=== PATIENT | female | born 1990 | race Caucasian/White ===

== ENCOUNTER 2020-06-05 21:51 | Emergency (ER) | payer SELFPAY ==
[2020-06-05 21:56] VITALS: BP 154/79; PULSE 105; RESP 20; TEMP 36.8; O2SAT 99; BMI 33.6
[2020-06-05 22:00] VITALS: BP 148/81; PULSE 107; RESP 16; O2SAT 97
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
--- NOTE | 2020-06-05 22:11 | XRR_ITS ---
PROCEDURE INFORMATION: Exam: XR Chest, 1 View Exam date and time: 06/05/2020 10:29 PM Age: 30 years old Clinical indication: Shortness of breath; Chest pain; Additional info: SOB and cp TECHNIQUE: Imaging protocol: XR of the chest Views: 1 view. COMPARISON: No relevant prior studies available. FINDINGS: Lungs: Unremarkable. No consolidation. Pleural space: Unremarkable. No pleural effusion. No pneumothorax. Heart/Mediastinum: Unremarkable. No cardiomegaly. Bones/joints: Unremarkable. XR/XR chest 1V portable [id number] IMPRESSION: No acute findings.
[2020-06-05 22:30] VITALS: BP 150/81; PULSE 101; RESP 18; O2SAT 98
[2020-06-05 22:36] LABS: Basophils # 0.1 10^3/uL (0.0-0.1); Basophils % 0.5 %; Eosinophils # 0.3 10^3/uL (0.0-0.8); Hematocrit 40.5 % (37.0-47.0); Hemoglobin 13.4 g/dL (11.5-15.3); Lymphocytes % 30.7 %; Mean Corpuscular HGB Conc 33.1 g/dL (30.0-36.0); Mean Corpuscular Hemoglobin 30.2 pg (28.0-34.0); Mean Corpuscular Volume 91.4 fL (81-99); Mean Platelet Volume 9.8 fL (7.4-10.4); Monocytes # 0.8 10^3/uL (0.2-0.9); Monocytes % 8.4 %; Neutrophils # 5.63 10^3/uL (1.8-7.7); Neutrophils % 57.3 %; Nucleated Red Blood Cells % 0 %; Platelet Count 290 10^3/cmm (130-400); Red Blood Count 4.43 10^6/uL (4.1-5.3); Red Cell Distribution Width 12.5 % (12.1-15.1); White Blood Count 9.8 10^3/uL (4.0-10.0)
[2020-06-05] MEDS: meclizine 25 mg tablet 50 MG PO (22:50)
[2020-06-05] MEDS: sodium chloride 0.9% 1,000 ML 999 ML IV (22:53)
[2020-06-05 22:55] LABS: D Dimer 0.41 ug/mIFEU (0-0.59)
[2020-06-05 22:58] LABS: Alanine Aminotransferase 9 U/L (0-33); Albumin Level 3.9 g/dL (3.5-5.2); Alkaline Phosphatase 76 IU/L (35-105); Aspartate Amino Transferase 12 U/L (0-32); Blood Urea Nitrogen 16 mg/dL (6-20); Carbon Dioxide 22 mmol/L (22-29); Chloride 110 mmol/L (98-107); Globulin 3.3 g/dL (1.3-4.6); Glucose 113 mg/dL (65-115); Osmolality Calculated 294 mOsm/kg (285-295); Sodium 141 mmol/L (136-145); Total Bilirubin 0.2 mg/dL (0.15-1.2); Total Protein 7.2 g/dL (6.6-8.7)
[2020-06-05 23:00] VITALS: BP 148/77; PULSE 99; RESP 18; O2SAT 100
[2020-06-05 23:00] LABS: Troponin(5th) Baseline 6 ng/L (0-10)
[2020-06-05 23:08] LABS: HCG, Serum Qual Negative (Negative)
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
[2020-06-05 23:30] VITALS: BP 155/74; PULSE 98; RESP 16; O2SAT 99
[2020-06-06] VITALS: BP 149/77; PULSE 100; RESP 18; O2SAT 99
--- NOTE | 2020-06-06 00:11 | ECG_ITS ---
[facility] Test Date: 2020-06-05 Pat Name: Claribel Oconnor Department: Room: Gender: Female Cold [employer] Cook: : 1990 Requested By: Jung Fonseca Order Number: [id number] Polanco MD: Donte Klein M.D. Measurements Intervals [place] Rate: 87 P: 43 DE: 143 QRS: 28 QRSD: 107 T: 22 QT: 362 QTc: 437 Interpretive Statements SINUS RHYTHM INCOMPLETE RIGHT BUNDLE BRANCH BLOCK [90+ ms QRS DURATION, TERMINAL R IN V1/V2, 40+ ms S IN I/aVL/V4/V5/V6] No previous ECG available for comparison Electronically Signed On 06-06-2020 17:02:54 PRODUCTION SERVICE MANAGER by Donte Klein M.D. [id number] f
[2020-06-06 00:28] VITALS: BP 151/78; PULSE 101; RESP 16; O2SAT 98
== END 2020-06-06 00:30 | disposition home or self-care (01) ==
PROVIDERS: Emergency Provider Physician Assistant; PCP Nurse Practitioner Family
DX: S06.0X0A Concussion without loss of consciousness, initial encounter (principal); J40 Bronchitis, not specified as acute or chronic; M94.0 Chondrocostal junction syndrome [Tietze]; W22.8XXA Striking against or struck by other objects, initial encounter
CPT/HCPCS: 12345; 70450; 71045; 80053; 84484; 84703; 85025; 85378; 93005; 96360; 99283; J7030; J8597

== ENCOUNTER → 2020-06-15 08:12 | Outpatient (BNVA) | payer SELFPAY | PROVIDERS: PCP Nurse Practitioner Family; Visit Provider Nurse Practitioner Family | DX: R00.0 Tachycardia, unspecified (principal); Z79.899 Other long term (current) drug therapy | CPT/HCPCS: 80053; 81003; 83036; 83735; 84439; 84443; 84481 ==

== ENCOUNTER → 2020-07-04 10:15 | Outpatient (BNVA) | payer OTHER, SELFPAY | PROVIDERS: PCP Nurse Practitioner Family; Visit Provider Nurse Practitioner Family | DX: R53.83 Other fatigue (principal); D64.9 Anemia, unspecified; R31.9 Hematuria, unspecified; E55.9 Vitamin D deficiency, unspecified | CPT/HCPCS: 80053; 81003; 82306; 83550; 83921; 85025 ==

== ENCOUNTER → 2020-07-05 15:24 | Outpatient (BNVA) | payer OTHER, SELFPAY | PROVIDERS: PCP Nurse Practitioner Family; Visit Provider Nurse Practitioner Family | DX: R10.9 Unspecified abdominal pain (principal) | CPT/HCPCS: 74018; 80061; 82310; 83970 ==

== ENCOUNTER → 2020-07-12 11:19 | Outpatient (BNVA) | payer OTHER, SELFPAY | PROVIDERS: PCP Nurse Practitioner Family; Visit Provider Nurse Practitioner Family | DX: M16.0 Bilateral primary osteoarthritis of hip (principal); E55.9 Vitamin D deficiency, unspecified; E61.1 Iron deficiency | CPT/HCPCS: 73502 ==

== ENCOUNTER 2020-09-08 15:02 | Outpatient (CLI) | payer OTHER, SELFPAY ==
--- NOTE | 2020-09-08 15:00 | USCV_ITS ---
[place], [place] Age: 30 Gender: F : 1990 Exam Date: 09/08/2020 15:22 Ordering Phys: Donte Klein M.D ([email or web address]) Technologist: Adina Gómez Exam Location: [facility] Indication: TACHYCARDIA BP: / HR: 78 Rhythm: Sinus Technical Quality: Adequate MEASUREMENTS (Male / Female) Normal Values 2D ECHO LV Diastolic Diameter PLAX 4.4 cm 4.2 - 5.9 / 3.9 - 5.3 cm LV Systolic Diameter PLAX 2.6 cm LV Chamber Size 3.3 cm IVS Diastolic Thickness 1.2 cm 0.6 - 1.0 / 0.6 - 0.9 cm IVS Systolic Thickness 1.5 cm LVPW Diastolic Thickness 1.7 cm 0.6 - 1.0 / 0.6 - 0.9 cm LVPW Systolic Thickness 2.5 cm RV Chamber Size 2.2 cm LVOT Diameter 2.0 cm LV Ejection Fraction 2D Teich 72.1 % LV Ejection Fraction MOD 2C 60.4 % LV Ejection Fraction 2C AL 58.2 % LA Diameter 2.9 cm LA Width 3.1 cm LA Height 4.6 cm RA Width 2.2 cm RA Height 3.9 cm Aorta at Sinotubular Diameter 2.0 cm M-MODE LV Diastolic Diameter MM 4.5 cm 4.2 - 5.9 / 3.9 - 5.3 cm LV Systolic Diameter MM 2.5 cm LV Ejection Fraction MM Teich 75.5 % IVS Diastolic Thickness MM 1.2 cm 0.6 - 1.0 / 0.6 - 0.9 cm IVS Systolic Thickness MM 1.4 cm LVPW Diastolic Thickness MM 1.7 cm 0.6 - 1.0 / 0.6 - 0.9 cm LVPW Systolic Thickness MM 1.6 cm Aortic Annulus Diameter 2.6 cm LA Ao Ratio MM 1.3 MV E Point Septal Separation 0.8 cm DOPPLER AV Peak Velocity 175.0 cm/s LVOT Peak Velocity 161.0 cm/s AV Area Cont Eq vti 3.5 cm squared AV Area Cont Eq pk 2.9 cm squared MV Area PHT 7.1 cm squared Mitral E to A Ratio 1.4 MV E' Velocity 66.0 cm/s Mitral E to MV E' Ratio 7.3 Mitral E to LV E' Lateral Ratio 6.9 Mitral E to LV E' Septal Ratio 7.9 TR Peak Velocity 255.3 cm/s TR Peak Gradient 26.1 mmHg TV Peak E Velocity 70.0 cm/s Right Atrial Pressure 3.0 mmHg Pulmonary Artery Systolic Pressu 29.1 mmHg PV Peak Velocity 100.0 cm/s RV Acceleration Time 0.2 s RV Ejection Time 0.4 s RV AcT/ET 0.5 FINDINGS Left Ventricle Normal left ventricular size. LV systolic function is normal with EF of 55-60%. No regional wall motion abnormalities. Normal diastolic filling pattern. Right Ventricle The right ventricle is normal in size and function. Right Atrium The right atrium is normal in size. Left Atrium The left atrium is normal in size. Mitral Valve Structurally normal mitral valve without significant stenosis or prolapse. There is no mitral regurgitation. Aortic Valve Structurally normal aortic valve without significant sclerosis or stenosis. There is no aortic regurgitation. Tricuspid Valve Structurally normal tricuspid valve without significant stenosis or regurgitation. Insufficient TR jet to calculate RVSP Pulmonic Valve Structurally normal pulmonic valve without significant stenosis. There is no pulmonic regurgitation. Pericardium Normal pericardium without effusion. Aorta Normal ascending aorta dimension. CONCLUSIONS LV systolic function is normal with EF of 55-60% Diatsolic function is normal No valvular heart disease No comparison studies are available Donte Klein MD (Electronically Signed) Final Date: 18 September 2020 22:27 S
== END 2020-09-08 15:03 | disposition home or self-care (01) ==
LOC: US 15:07
PROVIDERS: PCP Nurse Practitioner Family; Visit Provider Internal Medicine
DX: R00.0 Tachycardia, unspecified (principal)
CPT/HCPCS: 93306

== ENCOUNTER 2020-11-01 06:00 | Outpatient (RCR) | payer OTHER, SELFPAY | END 2020-11-07 23:59 | disposition home or self-care (01) | LOC: WPT 06:00 | PROVIDERS: PCP Nurse Practitioner Family; Referring Provider Nurse Practitioner Family; Visit Provider Nurse Practitioner Family | DX: M25.552 Pain in left hip (principal); G89.29 Other chronic pain | CPT/HCPCS: 97161 ==

== ENCOUNTER 2020-11-08 06:00 | Outpatient (RCR) | payer OTHER, SELFPAY | END 2020-12-07 23:59 | disposition home or self-care (01) | LOC: WPT 06:00 | PROVIDERS: PCP Nurse Practitioner Family; Referring Provider Nurse Practitioner Family; Visit Provider Nurse Practitioner Family | DX: M25.552 Pain in left hip (principal); G89.29 Other chronic pain | CPT/HCPCS: 97110; 97116; 97140 ==

== ENCOUNTER 2020-11-15 23:16 | Emergency (ER) | payer OTHER, SELFPAY ==
[2020-11-15 23:25] VITALS: BP 136/105; PULSE 93; RESP 18; TEMP 36.8; O2SAT 99; BMI 34.3
--- NOTE | 2020-11-15 23:42 | ED_ITS ---
HPI - Back Pain/Injury General: Chief Complaint: Back Pain/Injury Stated Complaint: SEVERE MID BACK PAIN Time Seen by Provider: 11/15/20 23:27 History of Present Illness: HPI Narrative: Patient has had intermittent mid back pain. Patient says worse and aggravated by work today. Hurts for her to reach forward and move extremities. 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 MD elicited complaint: back pain Onset (ago): hour(s) Timing: intermittent Severity: moderate Similar Symptoms Previously: Yes Quality: aching Location: thoracic spine Radiation: none Exacerbating factors: movement Relieving factors: immobilization Associated symptoms: Reports no associated symptoms; Deny abdominal pain, chills, fever(s), nausea or vomiting Work related injury: No Review of Systems Const: Denies: fever(s), chills or body aches Eyes: Denies: change in vision or blurry vision ENMT: Denies: throat pain or nasal congestion Card: Denies: chest pain or dyspnea on exertion Resp: Denies: dyspnea, productive cough or non-productive cough GI: Denies: abdominal pain, nausea or vomiting Musc: Reports: back pain; Denies: extremity pain Skin/Breast: Denies: rash Neuro: Denies: headache(s) Psych: Denies: anxiety or depression Freddie/Lymph: Denies: easy bruising PFSH ED PFSH: Medical History (Updated 11/15/20 @ 23:42 by SALVADOR Riojas) Acute exacerbation of chronic low back pain Asthma Contact dermatitis Degenerative joint disease of both hips GERD (gastroesophageal reflux disease) Hematuria Iron deficiency Medication management Migraine Nausea and vomiting Otitis media Tachycardia Urinary tract infection Vitamin D deficiency Social History Smoking and tobacco status: never smoked Second hand smoke exposure: No Smoking risk assessment/counseling performed?: No Alcohol intake: never Desire information about alcohol rehabilitation?: No Counseling given: No Female Reproductive History: Date of last menstrual period: 11/12/20 Physical Exam Const: COMMON NORMALS: no acute distress, average body habitus and patient fercho ented x3 HENMT: COMMON NORMALS: normocephalic HEAD & SCALP: normal to inspection and normocephalic FACE & SINUS: normal facial exam Eye: COMMON NORMALS: conjunctivae normal GENERAL EYE: appearance normal, both eyes and all related structures CONJUNCTIVA: Yes conjunctivae normal Neck/C-Spine: COMMON NORMALS: no JVD Chest: COMMONS NORMALS: normal inspection of the chest Resp: COMMON NORMALS: normal respiratory effort Cardio: COMMON NORMALS: no JVD GI: COMMON NORMALS: Normal to inspection, nondistended, normoactive bowel sounds present Back/Pelvis: THORACIC SPINE/UPPER BACK: Yes paraspinal muscle tenderness Extremity: COMMON NORMALS: normal to inspection and full ROM Neuro: COMMON NORMALS: patient oriented x3 Course Vital Signs: Vital signs: Vital Signs Temperature 98.2 F 11/15/20 23:25 Pulse Rate 93 11/15/20 23:25 Respiratory Rate 18 11/15/20 23:25 Blood Pressure 136/105 11/15/20 23:25 Pulse Oximetry 99 11/15/20 23:25 Discharge Plan Discharge Patient Disposition: Home Clinical Impression: Back pain Qualifiers: Back pain location: thoracic back pain Chronicity: acute Back pain laterality: midline Qualified Code(s): M54.6 - Pain in thoracic spine Condition: Stable Prescriptions: New prednisone 20 mg tablet 20 mg PO DAILY Qty: 7 RF: 0 cyclobenzaprine 5 mg tablet 5 mg PO TID PRN (Reason: muscle spasm) Qty: 10 RF: 0 No Action cholecalciferol (vitamin D3) 1,250 mcg (50,000 unit) capsule 50,000 unit PO .weekly 90 Days Qty: 12 RF: 1 cyanocobalamin (vitamin B-12) 1,000 mcg capsule 1,000 mcg PO DAILY RF: 0 betamethasone valerate 0.1 % cream 1 applic topical BID PRN (Reason: rash) 14 Days Qty: 45 RF: 0 pantoprazole [Protonix] 40 mg tablet,delayed release (DR/EC) 40 mg PO DAILY 90 Days Qty: 90 RF: 0 sulfamethoxazole-trimethoprim [Bactrim DS] 800-160 mg tablet 1 tab PO BID 7 Days Qty: 14 RF: 0 ondansetron HCl [Zofran] 4 mg tablet 4 mg PO Q8H PRN (Reason: nausea and vomiting) 5 Days Qty: 15 RF: 0 meloxicam 15 mg tablet 15 mg PO DAILY 30 Days Qty: 30 RF: 2 amitriptyline 10 mg tablet 10 mg PO DAILY 30 Days Qty: 30 RF: 2 ferrous sulfate 325 mg (65 mg iron) tablet,delayed release (DR/EC) 325 mg PO DAILY 90 Days Qty: 90 RF: 1 metoprolol tartrate 25 mg tablet 37.5 mg PO BID Qty: 180 RF: 3 Discharge Orders: Discharge ED (Routine); Ordered 11/15/20 Ordered By: Rene Valencia Referrals: BLANCA Maldonado, FIELD APPLICATIONS SPECIALIST [Primary Care Provider] - Discharge Diet: Usual diet Discharge Activity: Increase activity as tolerated Patient Instructions: Back Pain (ED) Activity Restrictions/Additional Instructions: Follow-up with medical provider as directed. Take medications as prescribed. Return to the ER or your medical provider if condition worsens. Please read and understand discharge instructions. If any questions ask please. Alternate moist heat and ice to area. Follow-up chiropractor if needed. Stand Alone Forms: Work/School Release Coding Level of Care Code ED Babysitter for Aaron Booker
[2020-11-15] MEDS: cyclobenzaprine 10 mg Tablet PO (23:53)
[2020-11-15] MEDS: CELEcoxib 200 mg Capsule 400 MG PO (23:53)
[2020-11-15 23:59] VITALS: BP 138/89; PULSE 99; RESP 16; TEMP 36.8; O2SAT 98
== END 2020-11-16 00:01 | disposition home or self-care (01) ==
PROVIDERS: Emergency Provider Nurse Practitioner Family; PCP Nurse Practitioner Family
DX: M54.6 Pain in thoracic spine (principal)
CPT/HCPCS: 99283

== ENCOUNTER 2020-11-23 10:38 | Outpatient (CLI) | payer OTHER, SELFPAY ==
--- NOTE | 2020-11-23 10:51 | XR_ITS ---
WS: [id number] Exam: XR thoracic spine 3V* [id number] Date/Time of Exam: 11/23/2020 10:51 AM Reason For Exam: M54.5 - Low back pain Findings: In the AP projection, the thoracic spine is straight. In the lateral projection, the thoracic curve is well maintained. The intervertebral disc spaces are intact. No fractures or anomalies of the tho racic spine are noted. XR/XR thoracic spine 3V* [id number] IMPRESSION: Negative thoracic spine.
--- NOTE | 2020-11-23 10:51 | XR_ITS ---
WS: [id number] Exam: XR lumbar spine 6V w f/e [id number] Date/Time of Exam: 11/23/2020 10:51 AM Reason For Exam: M54.5 - Low back pain Findings: In the AP projection, the lumbar spine is straight. The sacroiliac joints are open. The facet struc tures are bilaterally symmetrical. In the lateral projection, the lumbar curve is well maintained. The intervertebral disc spaces are intact. No fractures or anomalies of the lumbar spine are noted. XR/XR lumbar spine 6V w f/e [id number] IMPRESSION: Negative lumbar spine.
== END 2020-11-23 10:39 | disposition home or self-care (01) ==
PROVIDERS: PCP Nurse Practitioner Family; Visit Provider Nurse Practitioner Family
DX: M54.5 Low back pain (principal); G89.29 Other chronic pain
CPT/HCPCS: 72072; 72114

== ENCOUNTER → 2020-12-05 10:26 | Outpatient (BNVA) | payer OTHER, SELFPAY | PROVIDERS: PCP Nurse Practitioner Family; Visit Provider Nurse Practitioner Family | DX: N39.0 Urinary tract infection, site not specified (principal); H65.93 Unspecified nonsuppurative otitis media, bilateral; J02.9 Acute pharyngitis, unspecified; N02.9 Recurrent and persistent hematuria with unspecified morphologic changes | CPT/HCPCS: 81003; 87086; 88112 ==

== ENCOUNTER → 2020-12-07 11:43 | Outpatient (BNVA) | payer OTHER, SELFPAY | PROVIDERS: PCP Nurse Practitioner Family; Visit Provider Nurse Practitioner Family | DX: J06.9 Acute upper respiratory infection, unspecified (principal); Z20.822 Contact with and (suspected) exposure to COVID-19 | CPT/HCPCS: 87635 ==

== ENCOUNTER → 2020-12-29 14:04 | Outpatient (BNVA) | payer OTHER, SELFPAY | PROVIDERS: PCP Nurse Practitioner Family; Visit Provider Nurse Practitioner Family | DX: N39.0 Urinary tract infection, site not specified (principal) | CPT/HCPCS: 81003; 87086 ==

== ENCOUNTER → 2021-03-23 11:15 | Outpatient (BNVA) | payer OTHER, SELFPAY | PROVIDERS: PCP Nurse Practitioner Family; Visit Provider Nurse Practitioner Family | DX: S46.911D Strain of unspecified muscle, fascia and tendon at shoulder and upper arm level, right arm, subsequent encounter (principal); M67.911 Unspecified disorder of synovium and tendon, right shoulder; X58.XXXA Exposure to other specified factors, initial encounter | CPT/HCPCS: 73030 ==

== ENCOUNTER 2021-05-26 11:28 | Outpatient (RCR) | payer OTHER, MEDICAID, SELFPAY | END 2021-06-09 23:59 | disposition home or self-care (01) | LOC: WPT 11:28 | PROVIDERS: PCP Nurse Practitioner Family; Referring Provider Nurse Practitioner Family; Visit Provider Nurse Practitioner Family | DX: M67.911 Unspecified disorder of synovium and tendon, right shoulder (principal); S46.911D Strain of unspecified muscle, fascia and tendon at shoulder and upper arm level, right arm, subsequent encounter; X58.XXXD Exposure to other specified factors, subsequent encounter | CPT/HCPCS: 97110; 97140; 97162; 97530 ==

== ENCOUNTER → 2021-07-21 15:05 | Outpatient (BNVA) | payer MEDICAID, SELFPAY | PROVIDERS: PCP Nurse Practitioner Family; Visit Provider Nurse Practitioner Family | DX: M79.671 Pain in right foot (principal); M16.12 Unilateral primary osteoarthritis, left hip | CPT/HCPCS: 73502; 73630 ==

== ENCOUNTER → 2021-08-30 15:52 | Outpatient (BNVA) | payer MEDICAID, SELFPAY | PROVIDERS: PCP Nurse Practitioner Family; Visit Provider Internal Medicine | DX: R00.0 Tachycardia, unspecified (principal) | CPT/HCPCS: 99213; 99214 ==

== ENCOUNTER → 2021-09-29 16:48 | Outpatient (BNVA) | payer MEDICAID, SELFPAY | PROVIDERS: PCP Nurse Practitioner Family; Referring Provider Nurse Practitioner Family; Visit Provider Nurse Practitioner Women's Health | DX: N93.9 Abnormal uterine and vaginal bleeding, unspecified (principal); Z84.0 Family history of diseases of the skin and subcutaneous tissue; N76.0 Acute vaginitis; B96.89 Other specified bacterial agents as the cause of diseases classified elsewhere | CPT/HCPCS: 84146; 84439 ==

== ENCOUNTER → 2021-10-16 12:59 | Outpatient (BNVA) | payer MEDICAID, SELFPAY | PROVIDERS: PCP Nurse Practitioner Family; Visit Provider Nurse Practitioner Women's Health | DX: N93.9 Abnormal uterine and vaginal bleeding, unspecified (principal) | CPT/HCPCS: 76830 ==

== ENCOUNTER → 2022-01-12 08:54 | Outpatient (BNVA) | payer MEDICAID, SELFPAY | PROVIDERS: PCP Nurse Practitioner Family; Referring Provider Nurse Practitioner Women's Health; Visit Provider Obstetrics & Gynecology | DX: Z01.419 Encounter for gynecological examination (general) (routine) without abnormal findings (principal); N93.9 Abnormal uterine and vaginal bleeding, unspecified; N92.6 Irregular menstruation, unspecified | CPT/HCPCS: 84443; 87624; 88305 ==

== ENCOUNTER 2022-05-01 11:12 | Observation (INO) | payer MEDICAID, SELFPAY ==
[2022-04-26 09:24] VITALS: BMI 38.2
--- NOTE | 2022-04-26 09:45 | P.ANESASSM_ITS ---
Pre-Anesthetic Assessment Height/Weight: Height 1.57 m Weight 94.801 kg Operation Date: 05/01/22 08:00 Proposed Procedures p Laparoscopic assisted vaginal hystreectomy, bilateral salpingectomy 98398, possible anterior and posterior repair 99204, Possible sling 79673,N81.4,n93.9(Not Applicable) - Miley Yepez MD s Anterior Repair(Not Applicable) - Miley Yepez MD s Posterior Repair(Not Applicable) - Miley Yepez MD s Sling(Not Applicable) - Miley Yepez MD s Laparoscopic Salpingectomy(Not Applicable) - Miley Yepez MD Familial anesthetic complications: Patient is redhead- she states she took alot of medicine to get her asleep for gallbladder surgery when she was 12 Social Tobacco and No alcohol Exam alert, oriented x 3, clear to auscultation bilaterally and regular rate & rhythm Airway Mallampati: Class III Dentition: chipped and loose Comments: Comments: Patient notified of risk of dental damage with intubation Pulmonary Asthma ( I have had issues for awhile ) CV/HEM Arrythmia (tachycardia) None reported Hepatic None reported GI Gastroesophageal Reflux Disease Metabolic Morbid Obesity [facility] Lower Back Pain Neuropsych None reported Anesthetic Plan ASA status: 2 Anesthesia: General Risk of > 500 ml blood loss (7ml/kg in children): No Medications/Allergies Home Medications Medication Instructions Recorded Confirmed Last Taken Type celecoxib 100 mg capsule (Celebrex) 100 mg PO DAILY 30 days #30 caps 08/11/21 04/26/22 04/26/22 07:00 Rx levonorgestrel-ethinyl estradiol 1 tab PO DAILY #28 tabs 02/06/22 04/26/22 04/26/22 07:00 Rx 0.1 mg-20 mcg tablet (Aviane) ivabradine 5 mg tablet 5 mg PO BID #180 tabs 02/28/22 04/26/22 04/26/22 07:00 Rx metoprolol tartrate 50 mg tablet 50 mg PO BID #90 tabs 02/28/22 04/26/22 04/26/22 08:00 Rx pantoprazole 40 mg tablet,delayed 40 mg PO DAILY 04/26/22 04/26/22 04/26/22 07:00 History release Allergies Allergy/AdvReac Type Severity Reaction Status Date / Time sulfamethoxazole Allergy Intermediate sick to Verified 04/26/22 09:21 [From Bactrim] stomach trimethoprim [From Bactrim] Allergy Intermediate sick to Verified 04/26/22 09:21 stomach Latex, Natural Rubber Allergy Mild ADR-Irritab Verified 04/26/22 09:21 le morphine Allergy Unknown Verified 04/26/22 09:21 nifedipine [From Procardia] Allergy Unknown Verified 04/26/22 09:21 flagyl Allergy Intermediate sick to Uncoded 04/26/22 09:21 stomach PFSH Anesthesia Medical History Acute exacerbation of chronic low back pain Asthma Contact dermatitis Degenerative joint disease of both hips Family history of lupus erythematosus getting evaluated for this Fatigue GERD (gastroesophageal reflux disease) Hematuria Hypertension Iron deficiency Left hip pain Medication management Migraine with aura Nausea and vomiting No pertinent past medical history neghx: dm,thyroid,dvt/pe PCP: Otitis media Pain and numbness of right upper extremity Pharyngitis Recurrent hematuria Right foot pain Shoulder strain Tachycardia Urinary tract infection Vaginal bleeding between periods Vitamin D deficiency Surgical History Hx laparoscopic cholecystectomy (~2003) Hx of knee surgery (~2005) Left S/P tubal ligation 2009 Dr. Dereje Mendenhall Family History Father Lupus Unsure of age of diagnosis Heart disease Mother Lupus Hypertension Sister Lupus, Onset Age: 32 Family/Other Lupus 3 maternal aunts diagnosed with Lupus Grandfather Diabetes Maternal and Paternal Heart disease Maternal and Paternal Hypertension Paternal Grandmother Heart disease Maternal and Paternal Thyroid disease Paternal Denies family history of Colon cancer Ovarian cancer Hypercholesteremia Breast cancer Uterine cancer Stroke Social History Smoking and tobacco status: current every day smoker Female Reproductive History Date of last menstrual period: 11/12/20 Data Anesthesia Cardiac Studies: Echocardiogram Ultrasound 09/08/20 Cardiac Event Monitor 06/28/20
[2022-04-26 09:55] LABS: Basophils % 0.2 %; Eosinophils # 0.1 10^3/uL (0.0-0.8); Eosinophils % 1.1 %; Hematocrit 42.7 % (37.0-47.0); Lymphocytes # 2.1 10^3/uL (0.8-4.8); Lymphocytes % 25.4 %; Mean Corpuscular HGB Conc 32.8 g/dL (30.0-36.0); Mean Corpuscular Hemoglobin 29.7 pg (28.0-34.0); Mean Corpuscular Volume 90.7 fl (81-99); Mean Platelet Volume 9.4 fL (7.4-10.4); Monocytes # 0.4 10^3/uL (0.2-0.9); Monocytes % 4.7 %; Neutrophils # 5.59 10^3/uL (1.8-7.7); Neutrophils % 68.5 %; Nucleated Red Blood Cells % 0 %; Platelet Count 306 10^3/cmm (130-400); Red Blood Count 4.71 10^6/uL (4.1-5.3); Red Cell Distribution Width 12.2 % (12.1-15.1); White Blood Count 8.2 10^3/uL (4.0-10.0)
[2022-04-26 10:15] LABS: Blood Urea Nitrogen 10 mg/dL (6-20); Calcium 9.3 mg/dL (8.5-10.5); Carbon Dioxide 23 mmol/L (22-29); Chloride 102 mmol/L (98-107); Glomerular Filtration Rate 141.2 mL/min (90-130); Glucose 95 mg/dL (65-115); Osmolality Calculated 279 mOsm/kg (285-295); Sodium 135 mmol/L (136-145)
[2022-05-01] VITALS (27 sets, daily range): BP systolic 100–138; BP diastolic 39–85; PULSE 51–84; RESP 14–23; TEMP 36.1–37.1; O2SAT 91–99
[2022-05-01] MEDS: acetaminophen 1,000 MG/100 ML PIGGYBACK 400 MG IV (07:00)
[2022-05-01] MEDS: sodium chloride 0.9% 1,000 ML 30 ML IV (07:00)
[2022-05-01] MEDS: CELEcoxib 200 mg Capsule 400 MG PO (07:03)
[2022-05-01] MEDS: gabapentin 300 mg Capsule PO (07:03)
[2022-05-01] MEDS: scopolamine 1.5 Patch 1 PATCH TRANSDERMA (07:04)
[2022-05-01] MEDS: phenazopyridine 100 mg Tablet 200 MG PO ×2 (07:04→14:48)
[2022-05-01 07:09] LABS: OR HCG Qualitative Urine Negative (Negative)
--- NOTE | 2022-05-01 07:12 | P.ANESUD_ITS ---
Pre-Anesthetic Update Pre-Anesthetic Assessment: Date of Surgery/Procedure: 05/01/22 Preop Yolanda gnosis: uterine prolapse, AUB Proposed Procedure: Operation Date: 05/01/22 08:00 Proposed Procedures p Laparoscopic assisted vaginal hystreectomy, bilateral salpingectomy 62645, possible anterior and posterior repair 22232, Possible sling 81800,N81.4,n93.9(Not Applicable) - Miley Yepez MD s Anterior Repair(Not Applicable) - Miley Yepez MD s Posterior Repair(Not Applicable) - Miley Yepez MD s Sling(Not Applicable) - Miley Yepez MD s Laparoscopic Salpingectomy(Not Applicable) - Miley Yepez MD Any changes to Pre-Anesthetic Assessment?: No Last Intake: Intake Last Liquid Date 04/30/22 Last Liquid Time 20:00 Last Solid Date 04/30/22 Last Solid Time 16:00 Vitals: Temperature 97 F L 05/01/22 06:33 Temperature Source Temporal Artery S can 05/01/22 06:33 Pulse Rate 76 05/01/22 06:33 Pulse Rhythm 05/01/22 06:33 Pulse Strength 3+ Normal 05/01/22 06:33 Respiratory Rate 18 05/01/22 06:33 Blood Pressure 130/77 05/01/22 06:33 Blood Pressure Naomie n 94 05/01/22 06:33 Pulse Oximetry 98 05/01/22 06:33 Oxygen Delivery Me thod 05/01/22 06:33 Exam: Pre-Anes Outpt Exam: alert, oriented x 3, clear to auscultation bilaterally and regular rate & rhythm Additional Exam Findings (including area of procedure): loose teeth Cardiac Studies: Echocardiogram Ultrasound 09/08/20 Cardiac Event Monitor 06/28/20
[2022-05-01] MEDS: ceFAZolin 2,000 MG in sodium chloride 0.9% (plus) 50 ML 100 MG IV ×2 (09:05→17:50)
--- NOTE | 2022-05-01 09:07 | W.PM.OPSUD ---
Surgery/Procedure H&P Update DATE OF PROCEDURE: May 01, 2022 DATE H&P PERFORMED: 04/26/22 H&P UPDATE INFORMATION: I have reviewed H&P completed within last 30 days, I have examined patient prior to procedure and No changes to prior documentation PREOP DIAGNOSIS: uterine prolapse, AUB PLANNED PROCEDURE: Operation Date: 05/01/22 08:00 Proposed Procedures p Laparoscopic assisted vaginal hystreectomy, bilateral salpingectomy 46314, possible anterior and posterior repair 31140, Possible sling 13909,N81.4,n93.9(Not Applicable) - Miley Yepez MD s Anterior Repair(Not Applicable) - Miley Yepez MD s Posterior Repair(Not Applicable) - Miley Yepez MD s Sling(Not Applicable) - Miley Yepez MD s Laparoscopic Salpingectomy(Not Applicable) - Miley Yepez MD Related Problem List Diagnoses (1) Uterine prolapse: (2) Abnormal uterine bleeding (AUB):
[2022-05-01] MEDS: vasopressin 20 unit/mL INJ INJECTION (10:02)
--- NOTE | 2022-05-01 10:57 | PM.OP ---
Operative Report Date of procedure: May 01, 2022 Pre-op diagnosis: Preop Diagnosis uterine prolapse, AUB Post-op diagnosis: same Procedure done: LAVH, bilateral salpingectomy Specimens removed/disposition: uterus and bilateral fallopian tubes to pathology Surgeon: Miley Yepez Anesthesia: General Estimated blood loss (mL): 40 IV fluids (mL): 1,100 Urine output (mL): 100 Complications: none Findings: 9 week sized uterus, normal appearing tubes and ovaries Condition: stable Disposition: PACU Procedure: The patient was taken to the operating room where general anesthesia was administered and found to be adequate. She was prepped and draped in the normal sterile fashion in the dorsal lithotomy position in [facility]. A Grimm catheter was placed. A weighted speculum was placed into the vagina and the anterior lip of the cervix was grasped with a single tooth tenaculum. The Zumi uterine manipulator was placed. The weighted speculum was removed. The gloves were changed and attention was turned to the abdomen. A 5 mm supraumbilical incision was made. Using a 5 mm port with the camera, the port was placed into the abdomen. The abdomen was insufflated. Two low, lateral 5 mm ports were placed on the left and right under direct visualization from the camera. The right tube was grasped and elevated. Using the laparoscopic cautery, the mesosalpinx was divided between the ovary and tube. The tube was removed. This was performed the same way on the left. The uteroovarian ligaments as well as the round ligaments were ligated. Attention was then turned to the vaginal portion of the procedure. The weighted speculum was placed into the vagina. The zumi manipulator was removed. The single tooth tenaculum was removed and replaced with the gadiel's tenaculum. 10 mL of dilute Pitressin was injected at the vesicovaginal junction. A circumferential incision was made at the vesicovaginal junction and the vaginal mucosa reflected cephalad. The posterior peritoneum was entered sharply with the Metzenbaum scissors and the long weighted speculum replaced. Using the Yobani clamps the uterosacral ligaments were clamped cut and suture-ligated. The anterior peritoneum was entered sharply with the metzenbaum scissors. Then sequentially the uterine arteries and cardinal ligaments were clamped cut and suture-ligated. A single-tooth tenaculum was used to deliver the uterus. The remaining segement of the utero-ovarian ligaments were clamped cut and suture-ligated bilaterally and the specimen was removed. There was good hemostasis with only mild bleeding from the cuff. The peritoneum was closed with a pursestring using 2-0 Vicryl. The vaginal cuff was closed with 0 Vicryl in a running locked pattern incorporating the uterosacral ligaments into the lateral aspects of the vaginal cuff. The Grimm catheter was removed and the cystoscope advanced into the bladder. The patient was given pyridium and bilateral spill was noted. There were no injuries or deficits noted in the bladder. The cystoscope was removed and the Grimm was replaced. Vaginal packing was placed for good hemostasis. The gloves and gowns were changed and attention was turned to the abdomen. The ports were closed with 2-0 monocryl with skin glue. The patient tolerated the procedure well. Sponge lap and needle counts were correct x3. She was taken to the recovery room in stable condition.
[2022-05-01] MEDS: fentaNYL 50 mcg/mL INJ 2mL IVP ×2 (11:21→11:48)
--- NOTE | 2022-05-01 11:30 | PC.NURSE ---
Fentanyl for pain. SaO2 87% room air post pain management. O2 @ 2L/NC
--- NOTE | 2022-05-01 13:21 | ANE.PACU2 ---
Inpatient post-anesthesia follow up: Airway intact: Yes Vital signs: Temperature 97.4 F Pulse Rate 57 Respiratory Rate 15 Blood Pressure 114/71 Pulse Oximetry 97 Oxygen Delivery Me thod Nasal Cannula Oxygen Flow Rate 2 Fraction of Inspir ed Oxygen Hydration adequate: Yes Nausea and vomiting: No Pain level: 3 Mental status: Baseline
[2022-05-01] MEDS: ketorolac 30 mg/mL INJ IVP (14:47)
[2022-05-01] MEDS: HYDROcodone-acetaminophen 5-325 mg Tablet PO (16:34)
[2022-05-01] MEDS: ondansetron 2 mg/ML SDV 2 mL 4 MG IVP (16:43)
[2022-05-01] MEDS: dextrose 5%-lactated ringers 1,000 ML 125 ML IV (16:58)
[2022-05-01] MEDS: docusate sodium 100 mg Capsule PO (17:51)
--- NOTE | 2022-05-01 23:07 | PC.NURSE ---
This nurse charted vitals from 1250 - 1750 on behalf of Ralph Hensley RN based on hand written notes from Ralph Hensley RN.
[2022-05-02] MEDS: dextrose 5%-lactated ringers 1,000 ML 125 ML IV (00:51)
[2022-05-02] MEDS: phenazopyridine 100 mg Tablet 200 MG PO (00:52)
[2022-05-02] MEDS: ceFAZolin 2,000 MG in sodium chloride 0.9% (plus) 50 ML 100 MG IV (00:52)
[2022-05-02] MEDS: ketorolac 30 mg/mL INJ IVP (00:52)
[2022-05-02 04:15] VITALS: BP 128/83; PULSE 74; RESP 14; TEMP 36.9; O2SAT 97
[2022-05-02 05:10] LABS: Hematocrit 35.6 % (37.0-47.0); Mean Corpuscular HGB Conc 33.7 g/dL (30.0-36.0); Mean Corpuscular Hemoglobin 30.3 pg (28.0-34.0); Mean Corpuscular Volume 89.9 fl (81-99); Mean Platelet Volume 9.4 fL (7.4-10.4); Platelet Count 258 10^3/cmm (130-400); Red Blood Count 3.96 10^6/uL (4.1-5.3); Red Cell Distribution Width 12.1 % (12.1-15.1); White Blood Count 11.3 10^3/uL (4.0-10.0)
--- NOTE | 2022-05-02 07:27 | P.DS_ITS ---
Discharge Providers Date of Admission: 05/01/22 11:12 Date of Discharge: May 02, 2022 Attending Provider at Admission: Miley Yepez MD Attending Provider at Discharge: Miley Yepez MD Primary Care Provider: AWA Mistry Diagnoses at Discharge Discharge Diagnosis (1) Uterine prolapse: Status: Acute (2) Abnormal uterine bleeding (AUB): Status: Acute Reason for Visit Reason for Visit: uterovaginal prolapse, unspecified Hospital Course Hospital Course The patient was admitted for surgery. She did well postoperatively and was ready for discharge on day #1 Physical Exam Narrative: The patient has no concerns today. She is doing very well. Const: COMMON NORMALS: no acute distress, patient oriented x3, no limitations, healthy appearing, alert and well nourished GENERAL APPEARANCE: cooperative, comfortable, well kempt and well developed ORIENTATION/CONSCIOUSNESS: Yes awake, Yes oriented to person, Yes oriented to place and Yes oriented to time Resp: COMMON NORMALS: normal respiratory effort EFFORT & INSPECTION: Yes able to speak in complete sentences GI: COMMON NORMALS: non-tender and No hepatosplenomegaly present PALPATION: Yes No hepatosplenomegaly present Extremity: COMMON NORMALS: no calf tenderness Neuro: COMMON NORMALS: patient oriented x3 SENSORIUM/ORIENTATION: Yes al ert, Yes oriented to person, Yes oriented to place and Yes oriented to time Psych: APPEARANCE: Yes well kempt Urinary Catheter Management: Grimm: Cath Placed During This Visit: yes, but has since been removed by the nurse Reason for Continuing Indwelling Catheter: Perioperative Use in Selected Surgeries Urinary Catheter Date of Insertion: 05/01/22 Urinary Catheter Time of Insertion: 09:34 Date Urinary Catheter Removed: 05/02/22 Time Urinary Catheter Discontinued: 04:50 Discharge Data Studies Completed and Pending Pending at discharge Category Date Time Status Urine Culture Routine Lab 04/26/22 09:38 Uncollected Pathology: Surgical [PTH] Routine Pth 05/01/22 11:09 Received Laboratory Results WBC 11.3 10^3/uL (4.0-10.0) H 05/02/22 05:02 RBC 3.96 10^6/uL (4.1-5.3) L 05/02/22 05:02 Hgb 12.0 g/dL (11.5-15.3) 05/02/22 05:02 Hct 35.6 % (37.0-47.0) L 05/02/22 05:02 MCV 89.9 fl (81-99) 05/02/22 05:02 MCH 30.3 pg (28.0-34.0) 05/02/22 05:02 MCHC 33.7 g/dL (30.0-36.0) 05/02/22 05:02 RDW 12.1 % (12.1-15.1) 05/02/22 05:02 Plt Count 258 10^3/cmm (130-400) 05/02/22 05:02 MPV 9.4 fL (7.4-10.4) 05/02/22 05:02 Neut % (Auto) 68.5 % 04/26/22 09:35 Lymph % (Auto) 25.4 % 04/26/22 09:35 [place] % (Auto) 4.7 % 04/26/22 09:35 Eos % (Auto) 1.1 % 04/26/22 09:35 Baso % (Auto) 0.2 % 04/26/22 09:35 Neut # (Auto) 5.59 10^3/uL (1.8-7.7) 04/26/22 09:35 Lymph # (Auto) 2.1 10^3/uL (0.8-4.8) 04/26/22 09:35 [place] # (Auto) 0.4 10^3/uL (0.2-0.9) 04/26/22 09:35 Eos # (Auto) 0.1 10^3/uL (0.0-0.8) 04/26/22 09:35 Baso # (Auto) 0.0 10^3/uL (0.0-0.1) 04/26/22 09:35 Nucleated RBC % (auto) 0 % 04/26/22 09:35 Nucleated RBCs # 0.0 /100WBC 04/26/22 09:35 Sodium 135 mmol/L (136-145) L 04/26/22 09:35 Potassium 4.0 mmol/L (3.5-5.1) 04/26/22 09:35 Chloride 102 mmol/L (98-107) 04/26/22 09:35 Carbon Dioxide 23 mmol/L (22-29) 04/26/22 09:35 Anion Gap 14.0 (5-19) 04/26/22 09:35 BUN 10 mg/dL (6-20) 04/26/22 09:35 Creatinine 0.5 mg/dL (0.5-0.9) 04/26/22 09:35 GFR Calculation 141.2 mL/min (90-130) H 04/26/22 09:35 Glucose 95 mg/dL (65-115) 04/26/22 09:35 Calculated Osmolality 279 mOsm/kg (285-295) L 04/26/22 09:35 Calcium 9.3 mg/dL (8.5-10.5) 04/26/22 09:35 Urine HCG, Qual Negative (Negative) 05/01/22 07:08 Blood Type O Positive 05/01/22 06:55 Rho(D) Type Positive 05/01/22 06:55 Antibody Screen Negative 05/01/22 06:55 Vitals Last Vital Signs Temp 98.4 F 05/02/22 04:15 Pulse 74 05/02/22 04:15 Resp 14 05/02/22 04:15 BP 128/83 05/02/22 04:15 Pulse Ox 97 05/02/22 04:15 O2 Del Method 05/02/22 04:15 O2 Flow Rate 2 05/01/22 12:10 Discharge Plan Discharge Patient Disposition: Home Condition: Stable Prescriptions: New ibuprofen 800 mg Tablet 800 mg PO Q8H Qty: 30 0RF hydrocodone-acetaminophen 5-325 mg Tablet 1 tab PO Q4H PRN (Reason: Moderate To Severe Pain) Qty: 30 0RF docusate sodium 100 mg Capsule 100 mg PO BID Qty: 60 0RF Continued metoprolol tartrate 50 mg tablet 50 mg PO BID Qty: 90 3RF ivabradine 5 mg tablet 5 mg PO BID Qty: 180 3RF Rx Instructions: must administer with a meal/food celecoxib [Celebrex] 100 mg capsule 100 mg PO DAILY 30 Days Qty: 30 5RF levonorgestrel-ethinyl estrad [Aviane] 0.1-20 mg-mcg tablet 1 tab PO DAILY Qty: 28 12RF pantoprazole 40 mg tablet,delayed release (DR/EC) 40 mg PO DAILY Rx Instructions: Take 1 tablet by mouth once daily for 90 days Discharge Orders: Discharge Order (Routine); Ordered 05/02/22 Ordered By: Miley Yepez Patient Instructions: Opioid Safety Discharge Attestations Time Spent in Discharge Care*: less than 30 min Quality Metrics Clinical Quality Measures [ No reported AMI, CVA or VTE this stay] Coding Level of Care Code Acute Chg FW DC note Diagnoses Uterine prolapse N81.4 Abnormal uterine bleeding (AUB) N93.9
[2022-05-02 09:05] VITALS: BP 129/75; PULSE 86; RESP 18; TEMP 36.7; O2SAT 98
== END 2022-05-02 09:06 | disposition home or self-care (01) ==
LOC: OBGYN 11:12
PROVIDERS: Anesthesiology; Admitting Provider Obstetrics & Gynecology; PCP Registered Nurse; Visit Provider Obstetrics & Gynecology
PROC: 0UT9FZZ Resection of Uterus, Via Natural or Artificial Opening With Percutaneous Endoscopic Assistance (ICD-10-PCS; CPT 58552; principal; 2022-05-01 08:00)
PROC: (CPT 58661; 2022-05-01 08:00)
PROC: 0TJB8ZZ Inspection of Bladder, Via Natural or Artificial Opening Endoscopic (ICD-10-PCS; CPT 52000; 2022-05-01 08:00)
DX: N81.4 Uterovaginal prolapse, unspecified (principal); K21.9 Gastro-esophageal reflux disease without esophagitis; J45.909 Unspecified asthma, uncomplicated; E66.01 Morbid (severe) obesity due to excess calories; Z68.38 Body mass index [BMI] 38.0-38.9, adult
CPT/HCPCS: 58552; 36415; 59025; 80048; 81025; 84703; 85025; 85027; 86850; 86900; 88307; G0378; J0131; J0690; J1100; J1200; J1885; J2250; J2370; J2405; J2704; J2710; J3010; J3490; J7030; J7121

== ENCOUNTER → 2022-06-13 15:00 | Outpatient (BNVA) | payer MEDICAID, SELFPAY | PROVIDERS: PCP Registered Nurse; Visit Provider Obstetrics & Gynecology | DX: R30.0 Dysuria (principal); R31.9 Hematuria, unspecified | CPT/HCPCS: 81000; 87086 ==

== ENCOUNTER → 2022-06-19 13:55 | Outpatient (BNVA) | payer MEDICAID, SELFPAY | PROVIDERS: PCP Registered Nurse; Visit Provider Nurse Practitioner | DX: H93.90 Unspecified disorder of ear, unspecified ear (principal); J10.1 Influenza due to other identified influenza virus with other respiratory manifestations | CPT/HCPCS: 87400 ==

== ENCOUNTER 2022-08-02 07:56 | Outpatient (CLI) | payer MEDICAID, SELFPAY ==
--- NOTE | 2022-08-02 08:14 | FL_ITS ---
WS: [id number] Exam: FL barium swallow [id number] Date/Time of Exam: 08/02/2022 8:26 AM Reason For Exam: NONTOXIC SINGLE THYROID NODULE/DYSPHONIA Fluoroscopy time: 1min [id number] minutes # of spot films: 67 Swallowing function at the level of oropharynx was normal. The esophagus is smooth in contour. There was no evidence of esophageal stricture or mass. No obvious extrinsic filling defects identified. No aspiration was noted. No hiatal hernia or gastroesophageal reflux was observed. The esophagus is not displaced. FL/FL barium swallow [id number] IMPRESSION: 1. Negative esophagram.
== END 2022-08-02 07:57 | disposition home or self-care (01) ==
LOC: RAD 08:00
PROVIDERS: PCP Registered Nurse; Visit Provider Specialist
DX: E04.1 Nontoxic single thyroid nodule (principal); R49.0 Dysphonia
CPT/HCPCS: 74220

== ENCOUNTER → 2022-11-26 15:10 | Outpatient (BNVA) | payer MEDICAID, SELFPAY | PROVIDERS: PCP Registered Nurse; Referring Provider Nurse Practitioner Family; Visit Provider Specialist | DX: G89.29 Other chronic pain (principal); M25.511 Pain in right shoulder | CPT/HCPCS: 73030 ==

== ENCOUNTER 2022-12-13 14:25 | Outpatient (CLI) | payer MEDICAID, SELFPAY ==
--- NOTE | 2022-12-13 15:15 | MR_ITS ---
WS: [id number] MRI RIGHT SHOULDER HISTORY: right shoulder pain COMPARISON: Radiograph 11/26/2022. TECHNIQUE: Multiplanar sequences of the shoulder joint are submitted. Mild AC joint hypertrophy. Predominantly soft tissue hypertrophy. No osteophyte. Very slight downslop ing of the acromion. There is mild subacromial impingement upon the supraspinatus. No subacromial or subdeltoid bursal fluid. Biceps tendon is in normal position. No os acromion. No muscle atrophy or edema. No rotator cuff tear is identified. No joint effusion. No labral tear. MR/MR shoulder RT wo con* [id number] IMPRESSION: 1. Very minimal AC joint arthritis. 2. Very mild subacromial impingement. 3. No rotator cuff tear. No significant tendinopathy.
== END 2022-12-13 14:26 | disposition home or self-care (01) ==
LOC: RAD 14:27
PROVIDERS: PCP Nurse Practitioner Family; Visit Provider Specialist
DX: G89.29 Other chronic pain (principal); M25.511 Pain in right shoulder
CPT/HCPCS: 73221

== ENCOUNTER → 2023-01-09 12:43 | Outpatient (BNVA) | payer MEDICAID, SELFPAY | PROVIDERS: PCP Nurse Practitioner Family; Visit Provider Physician Assistant | DX: M47.22 Other spondylosis with radiculopathy, cervical region | CPT/HCPCS: 72050 ==

== ENCOUNTER 2023-01-16 20:00 | Outpatient (CLI) | payer MEDICAID, SELFPAY | END 2023-01-16 20:01 | disposition home or self-care (01) | LOC: SLEEP 01-17 05:31 | PROVIDERS: PCP Nurse Practitioner Family; Visit Provider Internal Medicine | DX: G47.33 Obstructive sleep apnea (adult) (pediatric) (principal) | CPT/HCPCS: 95811 ==

== ENCOUNTER 2023-03-28 15:05 | Outpatient (CLI) | payer MEDICAID, SELFPAY ==
--- NOTE | 2023-03-28 15:15 | MR_ITS ---
WS: [id number] MRI CERVICAL SPINE NONCONTRAST HISTORY: neck pain COMPARISON: None available. Technique: Multiplanar, multisequence noncontrast imaging of the cervical spine. Normal cervical alignment with no compression fracture or significant disc space narrowing. Abnormal signal in the cervical cord. There is a patchy area of increased T2 signal in the central ce rvical cord centered at C3. There is an additional area of increased T2 signal at the level of C1. No cord thinning or enlargement. Craniocervical junction, C1 and C2 relationship, odontoid process and soft tissues are normal. C2-C3: Normal. C3-C4: Mild osteophytic ridging with no disc protrusion. Near effacement of the central CSF. C4-C5: Normal. C5-C6: Mild annular disc bulging. C6-C7: Small central disc protrusion and mild annular disc bulging. No significant stenosis. C7-T1: Normal. Paraspinal soft tissue are normal. IMPRESSION: 1. Mild increased T2 signal most consistent with edema in the central cervical cord at the cervical m edullary junction and at C3. Demyelination and changes of multiple sclerosis should be considered. Re commend follow-up MRI brain with and without contrast and also postcontrast imaging of the cervical s pine. 2. Less likely cervical cord edema related to trauma.
== END 2023-03-28 15:06 | disposition home or self-care (01) ==
LOC: RAD 15:06
PROVIDERS: PCP Nurse Practitioner Family; Visit Provider Physician Assistant
DX: M47.22 Other spondylosis with radiculopathy, cervical region (principal)
CPT/HCPCS: 72141

== ENCOUNTER 2023-06-13 05:55 | Day surgery (SDC) | payer MEDICAID, SELFPAY ==
[2023-06-13 06:10] VITALS: BP 136/83; PULSE 91; RESP 16; TEMP 36.8; O2SAT 96; BMI 40.2
[2023-06-13] MEDS: sodium chloride 0.9% 1,000 ML 30 ML IV (06:27)
--- NOTE | 2023-06-13 06:44 | W.PM.OPSFHP ---
Same Day Surgery H&P Indication for Procedure/HPI DATE OF PROCEDURE: June 13, 2023 CHIEF COMPLAINT/INDICATIONFOR SURGICAL PROCEDURE: hematochezia PREOP DIAGNOSIS: hematochezia PLANNED PROCEDURE: Operation Date: 06/13/23 07:15 Proposed Procedures Diagnostic colonoscopy G0121 screen colon A risk Z12.11(Not Applicable) - Chilo Keyes MD Medications/Allergies* Home Medications Medication Instructions Recorded Confirmed Type estradiol 0.5 mg tablet (Estrace) 0.5 mg PO DAILY 11/28/22 06/13/23 History progesterone micronized 100 mg 100 mg PO QAM 11/28/22 06/13/23 History capsule (Prometrium) topiramate 50 mg tablet (Topamax) 50 mg PO DAILY 11/28/22 06/13/23 History ivabradine 5 mg tablet (Corlanor) 5 mg PO BID 06/11/23 06/13/23 History pantoprazole 40 mg tablet,delayed 40 mg PO DAILY 06/11/23 06/13/23 History release Allergies/Adverse Reactions Allergy/AdvReac Type Severity Reaction Status Date / Time sulfamethoxazole Allergy Intermediate sick to Verified 06/11/23 10:08 [From Bactrim] stomach trimethoprim [From Bactrim] Allergy Intermediate sick to Verified 06/11/23 10:08 stomach Latex, Natural Rubber Allergy Mild ADR-Irritab Verified 06/11/23 10:08 le metronidazole Allergy ADR-Nausea Verified 06/11/23 10:08 morphine Allergy Unknown Verified 06/11/23 10:08 nifedipine [From Procardia] Allergy Unknown Verified 06/11/23 10:08 Current Medications: Generic Name Dose Route Start Last Admin Trade Name Freq PRN Reason Stop Dose Admin Sodium Chloride 1,000 mls @ 30 mls/hr 06/13/23 06:00 06/13/23 06:27 Sodium Chloride 0.9% IV 30 mls/hr .Q24H BREANNA Administration Pertinent History/Comorbid Conditions* Medical History (Updated 05/09/23 @ 15:39 by SALVADOR Ellsworth) Upper respiratory infection Essential hypertension Cough Uterine prolapse Abnormal uterine bleeding (AUB) No pertinent past medical history neghx: dm,thyroid,dvt/pe PCP: Hypertension Vaginal bleeding between periods Left hip pain Right foot pain Fatigue Family history of lupus erythematosus getting evaluated for this Pain and numbness of right upper extremity Shoulder strain Recurrent hematuria Pharyngitis Nausea and vomiting Urinary tract infection Acute exacerbation of chronic low back pain Contact dermatitis GERD (gastroesophageal reflux disease) Migraine with aura Iron deficiency Degenerative joint disease of both hips Vitamin D deficiency Hematuria Otitis media Medication management Tachycardia Asthma Surgical History (Updated 09/29/21 @ 16:13 by Ira Moreno APN, REE) Hx of knee surgery (~2005) Left Hx laparoscopic cholecystectomy (~2003) S/P tubal ligation 2009 Dr. Dereje Mendenhall Family History (Updated 09/29/21 @ 15:50 by Anali Carbone) Diabetes Grandfather Maternal and Paternal Lupus Father Unsure of age of diagnosis Mother Sister, Onset Age: 32 Family/Other 3 maternal aunts diagnosed with Lupus Heart disease Father Grandfather Maternal and Paternal Grandmother Maternal and Paternal Hypertension Mother Grandfather Paternal Thyroid disease Grandmother Paternal Denies family history of Colon cancer Ovarian cancer Hypercholesteremia Breast cancer Uterine cancer Stroke Social History Substance/Drug Use: never Pertinent Exam Findings alert, oriented x 3, clear to auscultation bilaterally and regular rate & rhythm Recommendations Surgery/Procedure today Coding Level of Care Code Acute Code for Chg Fwd
--- NOTE | 2023-06-13 07:11 | P.ANESASSM_ITS ---
Pre-Anesthetic Assessment Height/Weight: Height 1.57 m Weight 99.79 kg Temp Pulse Resp BP Pulse Ox O2 Del Method 98.3 F 91 16 136/83 96 Room Air 06/13/23 06:10 06/13/23 06:10 06/13/23 06:10 06/13/23 06:10 06/13/23 06:10 06/13/23 06:10 Preop Diagnosis: hematochezia Operation Date: 06/13/23 07:15 Proposed Procedures p [id number] screening colonoscopy G0121 screen colon A risk Z12.11(Not Applicable) - Chilo Keyes MD Was Beta Preet taken within 24 hours: Yes Was Clonidine taken within 24 hours: N/A Last intake: Intake Last Liquid Date 06/12/23 Last Liquid Time 22:00 Last Solid Date 06/11/23 Last Solid Time 20:00 Social Tobacco 1/2 ppd pack(s) per day 7 pack years Exam alert and oriented x 3 Airway Submandibular: within normal limits Cervical ROM: within normal limits Mallampati: Class II Dentition: other Comments: Comments: poor dentation History/ROS No significant history except as noted Pulmonary Asthma and Sleep Apnea (uses CPAP) CV/HEM Arrythmia (sinus tachy) and Hypertension None reported Hepatic None reported GI Gastroesophageal Reflux Disease Metabolic Morbid Obesity [facility] [place] None reported Neuropsych None reported Anesthetic Plan ASA status: 3 Anesthesia: MAC Risk of > 500 ml blood loss (7ml/kg in children): No Medications/Allergies Home Medications Medication Instructions Recorded Confirmed Last Taken Type citalopram 10 mg tablet 10 mg PO DAILY #30 tabs 06/16/22 06/13/23 06/12/23 Rx metoprolol tartrate 50 mg tablet 50 mg PO BID #90 tabs 08/16/22 06/13/23 06/12/23 Rx estradiol 0.5 mg tablet (Estrace) 0.5 mg PO DAILY 11/28/22 06/13/23 06/12/23 History progesterone micronized 100 mg 100 mg PO QAM 11/28/22 06/13/23 06/11/23 History capsule (Prometrium) topiramate 50 mg tablet (Topamax) 50 mg PO DAILY 11/28/22 06/13/23 06/11/23 History ivabradine 5 mg tablet (Corlanor) 5 mg PO BID 06/11/23 06/13/23 06/12/23 History pantoprazole 40 mg tablet,delayed 40 mg PO DAILY 06/11/23 06/13/23 06/12/23 History release Allergies Allergy/AdvReac Type Severity Reaction Status Date / Time sulfamethoxazole Allergy Intermediate sick to Verified 06/11/23 10:08 [From Bactrim] stomach trimethoprim [From Bactrim] Allergy Intermediate sick to Verified 06/11/23 10:08 stomach Latex, Natural Rubber Allergy Mild ADR-Irritab Verified 06/11/23 10:08 le metronidazole Allergy ADR-Nausea Verified 06/11/23 10:08 morphine Allergy Unknown Verified 06/11/23 10:08 nifedipine [From Procardia] Allergy Unknown Verified 06/11/23 10:08 Current Medications Generic Name Dose Route Start Last Admin Trade Name Freq PRN Reason Stop Dose Admin Sodium Chloride 1,000 mls @ 30 mls/hr 06/13/23 06:00 06/13/23 06:27 Sodium Chloride 0.9% IV 30 mls/hr .Q24H BREANNA Administration PFSH Anesthesia Medical History Upper respiratory infection Essential hypertension Cough Uterine prolapse Abnormal uterine bleeding (AUB) No pertinent past medical history neghx: dm,thyroid,dvt/pe PCP: Hypertension Vaginal bleeding between periods Left hip pain Right foot pain Fatigue Family history of lupus erythematosus getting evaluated for this Pain and numbness of right upper extremity Shoulder strain Recurrent hematuria Pharyngitis Nausea and vomiting Urinary tract infection Acute exacerbation of chronic low back pain Contact dermatitis GERD (gastroesophageal reflux disease) Migraine with aura Iron deficiency Degenerative joint disease of both hips Vitamin D deficiency Hematuria Otitis media Medication management Tachycardia Asthma Surgical History Hx of knee surgery (~2005) Left Hx laparoscopic cholecystectomy (~2003) S/P tubal ligation 2009 Dr. Dereje Mendenhall Family History Father Lupus Unsure of age of diagnosis Heart disease Mother Lupus Hypertension Sister Lupus, Onset Age: 32 Family/Other Lupus 3 maternal aunts diagnosed with Lupus Grandfather Diabetes Maternal and Paternal Heart disease Maternal and Paternal Hypertension Paternal Grandmother Heart disease Maternal and Paternal Thyroid disease Paternal Denies family history of Colon cancer Ovarian cancer Hypercholesteremia Breast cancer Uterine cancer Stroke Social History Substance/Drug Use: never Data Anesthesia Cardiac Studies: Echocardiogram Ultrasound 09/08/20 Cardiac Event Monitor 06/28/20
[2023-06-13 07:48] VITALS: BP 114/57; PULSE 74; RESP 16; TEMP 36.1; O2SAT 91
[2023-06-13 08:00] VITALS: BP 132/90; PULSE 85; RESP 18; O2SAT 97
--- NOTE | 2023-06-13 13:14 | ANE.PACU2 ---
Inpatient post-anesthesia follow up: Airway intact: Yes Vital signs: Temperature 97.0 F Pulse Rate 85 Respiratory Rate 18 Blood Pressure 132/90 Pulse Oximetry 97 Oxygen Delivery Me thod Room Air Oxygen Flow Rate Fraction of Inspir ed Oxygen Hydration adequate: Yes Nausea and vomiting: No Pain level: 2 Mental status: Baseline
== END 2023-06-13 08:20 | disposition home or self-care (01) ==
PROVIDERS: PCP Nurse Practitioner Family; Visit Provider Surgery
PROC: 0DJD8ZZ Inspection of Lower Intestinal Tract, Via Natural or Artificial Opening Endoscopic (ICD-10-PCS; CPT 45378; principal; 2023-06-13 07:15)
DX: Z12.11 Encounter for screening for malignant neoplasm of colon (principal); D12.5 Benign neoplasm of sigmoid colon; F17.210 Nicotine dependence, cigarettes, uncomplicated; J45.909 Unspecified asthma, uncomplicated; G47.30 Sleep apnea, unspecified; I10 Essential (primary) hypertension; K21.9 Gastro-esophageal reflux disease without esophagitis; E66.01 Morbid (severe) obesity due to excess calories; Z68.41 Body mass index [BMI] 40.0-44.9, adult
CPT/HCPCS: 45385; 88305; J2001; J2704; J7030

== ENCOUNTER 2023-07-16 10:20 | Outpatient (CLI) | payer MEDICAID, SELFPAY ==
--- NOTE | 2023-07-16 12:15 | MR_ITS ---
WS: [id number] MRI CERVICAL SPINE with and without contrast HISTORY: G37.9 - Demyelinating disease of central nervous system, ... COMPARISON: 03/28/2023 Technique: Multiplanar, multisequence noncontrast imaging of the cervical spine. Postcontrast imaging in 3 planes. MultiHance 20 mL IV. Straightening of the normal cervical lordosis. Very minimal disc space narrowing and desiccation at C 6-7. Reidentified is the signal abnormality in the cervical cord centered at C3-4 extending over a length of 11 mm. The signal abnormality towards the cervical medullary junction is not as well visualized to day. There is no enhancement within the cervical cord. Craniocervical junction, C1 and C2 relationship, odontoid process and soft tissues are normal. C2-C3: Normal. C3-C4: Mild osteophytic ridging. No stenosis. C4-C5: Normal. C5-C6: Mild disc bulging. C6-C7: Mild annular disc bulging with osteophytosis and a central disc protrusion. Mild encroachment upon the ventral thecal sac but no stenosis. C7-T1: Normal. Paraspinal soft tissue are normal. IMPRESSION: 1. Reidentified is the increased T2 and FLAIR signal in the cervical cord centered at C3-4 extending over a length of 11 mm. Similar in appearance to 03/28/2023. No enhancement. Demyelinating disease w ithin the differential. 2. The additional signal abnormality at the cervical medullary junction is not evident today. No new areas of signal abnormality.
--- NOTE | 2023-07-16 13:00 | MR_ITS ---
WS: [id number] MRI BRAIN WITH AND WITHOUT CONTRAST HISTORY: G37.9 - Demyelinating disease of central nervous system, ... COMPARISON: MRI C-spine 03/28/2023 TECHNIQUE: Multiplanar imaging performed through the brain with MultiHance 20 ml's IV. No acute infarcts are seen. Louis-white matter differentiation is well preserved. No signal abnormalit y in the pericallosal white matter. No susceptibility artifacts or prior lacunar infarcts. Ventricles and extra-axial spaces are normal. Clivus and pituitary gland are normal. Visualized posterior fossa and brainstem are also normal. No signal abnormality at the cervical medul sravani junction. Postcontrast images are negative for masses or vascular malformations. Dural venous sinuses are normal. Paranasal sinuses: Well aerated with no significant disease. Mastoid air cells: Normal. Calvarium and scalp: Normal. IMPRESSION: 1. Normal MRI brain with contrast. 2. No demyelinating lesions in the pericallosal white matter. The brainstem appears unremarkable on this exam.
== END 2023-07-16 10:21 | disposition home or self-care (01) ==
LOC: RAD 10:20
PROVIDERS: PCP Nurse Practitioner Family; Visit Provider Psychiatry & Neurology Neurology
DX: G37.9 Demyelinating disease of central nervous system, unspecified (principal)
CPT/HCPCS: 70553; 72156; A9577

== ENCOUNTER 2023-09-18 08:13 | Outpatient (CLI) | payer MEDICAID, SELFPAY ==
--- NOTE | 2023-09-18 08:30 | FL_ITS ---
WS: [id number] LUMBAR PUNCTURE CLINICAL INFORMATION: G37.9 - Demyelinating disease of central nervous system, ... TECHNIQUE: Informed consent: The procedure and its potential risk and complications were discussed with the lucila ent. Verbal and written consent was obtained. Timeout: A timeout was performed to confirm correct patient, procedure, and site. Patient was prepped and draped in the usual sterile fashion. Lidocaine 1% was used for local anesthes ia. Utilizing fluoroscopic guidance, a 5.0 inch 22-gauge spinal needle was advanced into the subarach noid space at L3-L4 via LEFT oblique sublaminar approach. Free flow of clear CSF was obtained. 11 cc of CSF was collected and sent the lab for further analysis. FLUOROSCOPIC TIME: 0min [id number] # of spot films: 1 IMPRESSION: 1. Uncomplicated fluoroscopic guided lumbar puncture. 2. Opening pressure 8 cmH2O and closing pressure of 5 cmH2O 3. 11 cc clear CSF obtained
[2023-09-18 10:10] LABS: Mononuclear WBC CSF % 50 % (50-90); Polynuclear WBC CSF % 50 % (0-10); Red Blood Cell CSF 0 10^3/uL (0-0); White Blood Cell CSF 2 /uL (0-5)
[2023-09-18 10:29] LABS: Glucose CSF 58 mg/dL (40-70); Total Protein CSF 31 mg/dL (15-45)
[2023-09-18 10:37] LABS: Appearance CSF CLEAR (CLEAR); Color CSF COLORLESS (COLORLESS)
[2023-09-21 13:39] LABS: Angiotensin Convert Enzy CSF 8 U/L (<=15)
[2023-09-22 00:09] LABS: VDRL on CSF NON-REACTIVE
[2023-09-22 16:24] LABS: JC Virus DNA Ultra QN PCR NOT DETECTED Log IU/mL; JC Virus Quant CSF PCR NOT DETECTED
[2023-09-23 22:53] LABS: AQP4 AB Titer CSF NEGATIVE (NEGATIVE)
[2023-09-25 07:33] LABS: IgG CSF 2.9 mg/dL (0.8-7.7); IgG Index , CSF 0.55 (<0.70); Immunoglobulin G 1320 mg/dL (600-1640); Synthesis Rate IgG, CSF -2.3 mg/24 h (-9.9 TO +3.3)
== END 2023-09-18 08:14 | disposition home or self-care (01) ==
LOC: RAD 08:14
PROVIDERS: PCP Nurse Practitioner Family; Visit Provider Psychiatry & Neurology Neurology
DX: G37.9 Demyelinating disease of central nervous system, unspecified (principal); R20.2 Paresthesia of skin; M79.601 Pain in right arm; M79.602 Pain in left arm; M54.2 Cervicalgia; G95.19 Other vascular myelopathies
CPT/HCPCS: 62328; 80503; 82040; 82042; 82164; 82784; 82945; 83916; 84157; 86225; 86592; 87015; 87070; 87075; 87116; 87205; 87206; 87327; 87799; 87801; 89050

== ENCOUNTER 2023-10-16 16:22 | Inpatient (IN) | payer MEDICAID, SELFPAY ==
--- NOTE | 2023-10-16 16:42 | PC.PHAR ---
PT DOES NOT TAKE BLOOD THINNERS. PT ALSO DID NOT GET INSURANCE APPROVAL FOR AUBAGIO 7MG OROCREVUS 30MG/ML SHAKIR. SO SHE DID NOT GET TO EVEN START THESE MEDICATIONS.
[2023-10-16 16:48] VITALS: BP 128/83; PULSE 76; RESP 17; TEMP 36.7; O2SAT 97
[2023-10-16] MEDS: sodium chloride 0.9% 1,000 ML 75 ML IV (17:55)
--- NOTE | 2023-10-16 17:59 | PM.HP ---
Providers/Chief Complaint Admitting Physician: Fabrice Washington MD Primary Care Provider: Anjelica Mirza NP Chief Complaint: MS History of Present Illness Pleasant 33-year lady with history of hypertension, tachycardia, shoulder and arm pain and numbness, admitted to medical surgical floor by neurology due to finding of transverse myelitis for treatment with Solu-Medrol, IVIG. Hospitalist is asked to assist/comanage with the admission. She reports otherwise has not had any additional other symptoms on review of systems. Review of Systems Const: Denies: fever(s), chills, body aches or malaise ENMT: Denies: throat pain Card: Denies: chest pain, edema, pre-syncope or dyspnea on exertion Resp: Denies: dyspnea, productive cough, change in phlegm color or hemoptysis GI: Denies: abdominal pain, nausea, vomiting, diarrhea, constipation, hematochezia or melena : Denies: flank pain, urinary frequency or hematuria Musc: Reports: extremity pain; Denies: back pain, joint swelling or joint redness Skin/Breast: Denies: rash or new lesions Neuro: Reports: numbness in extremities; Denies: headache(s) Medications/Allergies Home Medications Medication Instructions Recorded Confirmed Last Taken Type estradiol 0.5 mg tablet (Estrace) 0.5 mg PO DAILY 11/28/22 10/16/23 10/16/23 History progesterone micronized 100 mg 100 mg PO QAM 11/28/22 10/16/23 10/16/23 History capsule (Prometrium) topiramate 50 mg tablet (Topamax) 50 mg PO DAILY 11/28/22 10/16/23 10/16/23 History pantoprazole 40 mg tablet,delayed 40 mg PO DAILY 06/11/23 10/16/23 10/16/23 History release ivabradine 5 mg tablet (Corlanor) 5 mg PO BID #180 tabs 09/09/23 10/16/23 10/16/23 Rx metoprolol tartrate 50 mg tablet 50 mg PO BID #90 tabs 09/09/23 10/16/23 10/16/23 Rx Allergies Allergy/AdvReac Type Severity Reaction Status Date / Time sulfamethoxazole Allergy Intermediate sick to Verified 10/15/23 12:54 [From Bactrim] stomach trimethoprim [From Bactrim] Allergy Intermediate sick to Verified 10/15/23 12:54 stomach Latex, Natural Rubber Allergy Mild ADR-Irritab Verified 10/15/23 12:54 le metronidazole Allergy ADR-Nausea Verified 10/15/23 12:54 morphine Allergy Unknown Verified 10/15/23 12:54 nifedipine [From Procardia] Allergy Unknown Verified 10/15/23 12:54 PFSH Acute PFSH: Medical History Upper respiratory infection Essential hypertension Cough Uterine prolapse Abnormal uterine bleeding (AUB) No pertinent past medical history neghx: dm,thyroid,dvt/pe PCP: Hypertension Vaginal bleeding between periods Left hip pain Right foot pain Fatigue Family history of lupus erythematosus getting evaluated for this Pain and numbness of right upper extremity Shoulder strain Recurrent hematuria Pharyngitis Nausea and vomiting Urinary tract infection Acute exacerbation of chronic low back pain Contact dermatitis GERD (gastroesophageal reflux disease) Migraine with aura Iron deficiency Degenerative joint disease of both hips Vitamin D deficiency Hematuria Otitis media Medication management Tachycardia Asthma Surgical History Hx of knee surgery (~2005) Left Hx laparoscopic cholecystectomy (~2003) S/P tubal ligation 2009 Dr. Reyez Orlando Family History Father Lupus Unsure of age of diagnosis Heart disease Mother Lupus Hypertension Sister Lupus, Onset Age: 32 Family/Other Lupus 3 maternal aunts diagnosed with Lupus Grandfather Diabetes Maternal and Paternal Heart disease Maternal and Paternal Hypertension Paternal Grandmother Heart disease Maternal and Paternal Thyroid disease Paternal Denies family history of Colon cancer Ovarian cancer Hypercholesteremia Breast cancer Uterine cancer Stroke Social History Smoking and tobacco/nicotine status: current some day tobacco/nicotine user cigarettes Alcohol intake: never Substance/Drug Use: never Vitals/I&O/Wt Last Vital Signs Temp 98.1 F 10/16/23 16:48 Pulse 76 10/16/23 16:48 Resp 17 10/16/23 16:48 BP 128/83 10/16/23 16:48 Pulse Ox 97 10/16/23 16:48 O2 Del Method Room Air 10/16/23 16:48 Weight last 48 hrs Weight 102.058 kg Physical Exam Narrative: Sitting up in bed, having diarrhea. Accompanied by family. Const: COMMON NORMALS: patient oriented x3 and alert GENERAL APPEARANCE: cooperative ORIENTATION/CONSCIOUSNESS: Yes awake HENMT: COMMON NORMALS: oropharynx normal Neck/C-Spine: COMMON NORMALS: no JVD Resp: COMMON NORMALS: normal respiratory effort and clear to auscultation bilaterally AUSCULTATION: clear to auscultation bilaterally Cardio: COMMON NORMALS: no JVD, regular rhythm, S1 normal heart sound present, S2 normal heart sound present and No murmurs present (Cardio) RHYTHM: regular rhythm HEART SOUNDS: S1 normal heart sound present and S2 normal heart sound present GI: COMMON NORMALS: Normal to inspection, nondistended, normoactive bowel sounds present, Soft to palpation and non-tender PALPATION: Yes Soft to palpation Extremity: COMMON NORMALS: no joint enlargement and no pedal edema Neuro: COMMON NORMALS: patient oriented x3 and moves all extremities SENSORIUM/ORIENTATION: Yes alert A&P Assessment and plan (1) Transverse myelitis: Discussed with neurologist. She is started on Solu-Medrol 500 mg every 12 hours, IVIG. Discussed with her at risk of hyperglycemia, monitor blood pressure for risk of hypertension. Monitor blood glucose. Change diet to consist carbohydrate. Will add sliding scale if seeing a rise in blood glucose. Monitor for risk of gastritis. With high-dose window Continue home PPI. Reviewed head MRI. Reviewed C-spine MRI. Reviewed neurology note. Reviewed vitals, will obtain CBC, CMP. Plan Hypertension: Continue metoprolol. Monitor blood pressures. Tachycardia: Continue metoprolol, ivabradine is not available in hospital, will put in nonformulary for her to be able to use her own medication. On estradiol, progesterone, will add VTE prophylaxis. Attestations Medical Necessity Statement*: Admission of over 2 midnights will be required for management of transverse myelitis, high-dose IV corticosteroids, IVIG. Diagnoses Transverse myelitis G37.3
[2023-10-16] MEDS: metoprolol tartrate 50 mg Tablet PO (18:16)
[2023-10-16] MEDS: heparin 5,000 unit/mL INJ 1 mL 5000 UNIT SUBCUT (18:26)
[2023-10-16 19:35] VITALS: BP 134/81; PULSE 79; RESP 20; TEMP 36.8; O2SAT 95
[2023-10-16 20:27] VITALS: BP 142/82; PULSE 81; RESP 16; TEMP 36.6; O2SAT 95
[2023-10-16] MEDS: IMMUNE GLOBULIN 40 GM/400 ML IV (20:27)
[2023-10-16 21:00] VITALS: BP 124/76; PULSE 79; RESP 14; TEMP 36.6; O2SAT 95
[2023-10-17] VITALS (9 sets, daily range): BP systolic 112–136; BP diastolic 71–78; PULSE 71–80; RESP 14–20; TEMP 36.3–36.7; O2SAT 93–98
[2023-10-17] MEDS: heparin 5,000 unit/mL INJ 1 mL 5000 UNIT SUBCUT ×2 (05:24→17:23)
[2023-10-17] MEDS: sodium chloride 0.9% 1,000 ML 75 ML IV ×2 (05:24→19:14)
[2023-10-17 06:05] LABS: Basophils % 0.1 %; Hematocrit 39.1 % (36-47); Lymphocytes # 0.9 10^3/uL (0.8-4.8); Lymphocytes % 11.6 %; Mean Corpuscular HGB Conc 33.2 g/dL (30-55); Mean Corpuscular Hemoglobin 29.5 pg (27-33); Mean Corpuscular Volume 88.7 fl (85-98); Mean Platelet Volume 9.6 fL (7.4-10.4); Monocytes # 0.1 10^3/uL (0.2-0.9); Monocytes % 0.9 %; Neutrophils # 7.02 10^3/uL (1.8-7.7); Neutrophils % 87.2 %; Nucleated Red Blood Cells % 0 %; Platelet Count 280 10^3/cmm (157-399); Red Blood Count 4.41 10^6/uL (3.85-5.65); Red Cell Distribution Width 11.9 % (12.1-15.1); White Blood Count 8.05 10^3/uL (3.29-11.43)
[2023-10-17 06:21] LABS: Alanine Aminotransferase 12 U/L (0-33); Albumin Level 3.7 g/dL (3.5-5.2); Alkaline Phosphatase 86 U/L (35-105); Anion Gap 13.9 (5-19); Aspartate Amino Transferase 12 U/L (0-32); Blood Urea Nitrogen 12 mg/dL (6-20); Calcium 8.5 mg/dL (8.5-10.5); Carbon Dioxide 19 mmol/L (22-29); Chloride 104 mmol/L (98-107); Creatinine Clr Calc Pharmacy 219.1026; Globulin 4.4 g/dL (1.3-4.6); Glomerular Filtration Rate 181.6 mL/min (90-130); Glucose 156 mg/dL (65-115); Osmolality Calculated 279 mOsm/kg (285-295); Potassium 3.9 mmol/L (3.5-5.1); Sodium 133 mmol/L (136-145); Total Bilirubin 0.3 mg/dL (0.15-1.2); Total Protein 8.1 g/dL (6.6-8.7)
--- NOTE | 2023-10-17 07:21 | PM.CONSULT ---
Providers/Reason For Consult Consulting Physician/Specialty*: Fabrice Washington MD neurology and epilepsy Reason for Consult*: Longitudinally extensive transverse myelitis and complaints of upper extremity paresthesias neck and back pain Attending Physician: Driss Mendenhall Primary Care Provider: Anjelica Mirza NP History of Present Illness History of Present Illness Reason for admission: Abnormal cervical MRI on 03/28/2023 secondary to edema involving the central cervical cord at the medullary junction associated with increasing constant neck pain associated with bilateral upper extremity numbness paresthesias and pain and right shoulder pain. Head MRI with and without contrast and cervical MRI with and without contrast 07/16/2023 revealing normal head MRI but increased T2 and FLAIR signal in the center of the cord at C3-C4 extending 11 mm. Note: The reported central cervical cord demyelination with edema at the medullary junction was not seen on the 07/16/2023 cervical MRI. History of present illness: Claribel Oconnor is a 33 year old female with a history of sinus tachycardia, left thyroid nodule, vitamin deficiency, asthma, intractable migraine headaches since childhood, total abdominal hysterectomy and nicotine dependence. According to the patient, approximately 1 to 2 years ago she was at a [employer]. 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 The patient stated that shortly after that incident, she began experiencing neck pain, and pain in her bilateral upper extremity associated with numbness and tingling and right shoulder pain. The patient stated that the symptoms did not improve but continued to increase in severity. The patient denied any trauma. The patient underwent a cervical MRI without contrast on 03/28/2023 which revealed edema in the central cervical cord at the medullary junction and possibility of demyelination disease could not be excluded. Therefore patient referred for neurological assessment. According to the patient there is family history of lupus but to her knowledge there is no one in her family with multiple sclerosis. The patient stated that she does not communicate with some members of her family. During the patient's last clinic visit on 06/20/2023 she was scheduled for head MRI with and without contrast and cervical MRI with and without contrast. Both studies were performed on 07/16/2023. Head MRI was reported to be negative but cervical MRI revealed increased T2 and FLAIR signal in the center of the cervical cord at C3-4 extending 11 mm. The edema of the cervical cord reported at the medullary junction on the MRI performed on 03/28/2023 was not observed on the repeat cervical MRI with and without contrast on 07/16/2023. The patient presented for reassessment. She denied any change in her condition. She denied any bowel or bladder incontinence. She continues to report arm numbness. Patient also reported some neck pain. She is still able to ambulate without assistance. But, she stated that she had to quit working secondary to abnormal sensations in her arms and hands with numbness. The results of the patient's test were discussed. I recommend the patient undergo lumbar puncture under fluoroscopy with radiology to assess for demyelinating disease and to rule out chronic infection. Patient will also obtain labs to assess for neuromyelitis optica as well as serum to compare immunoglobulins in the blood and serum. Following the lumbar puncture patient will be started on Ocrevus 300 mg IV x 1 dose, repeated x 1 in 2 weeks and then 600 mg IV every 6 months thereafter. The patient will be scheduled for follow-up 4 to 6 weeks following the second 300 mg dose of Ocrevus. The infusion will be performed at the infusion center at [facility]. The patient agreed with this plan and voiced understanding. Potential side effects of Ocrevus were discussed with the patient. Patient's insurance denied Ocrevus and then denied Aubagio. Lumbar puncture under fluoroscopy was performed by radiology on 09/18/2023. CSF revealed 2 WBC 50% polymorphonuclear cells. RBC 0. CSF NMO/Aqp-4 was still pending at the time of the dictation on 10/15/2023. ZAHIDA level was negative. AMY virus negative. VDRL negative. Serum Aquaporin -4 was negative. Head MRI with and without contrast performed on 07/16/2023 was reported to be within normal limits with no signs of any findings to suggest optic neuritis. Cervical MRI with and without contrast revealed increased T2 and FLAIR signal in the center of the cervical cord extending over 11 mm. This finding was reported to be similar to the MRI performed on 03/28/2023. There was no reported enhancement. The previous demyelinating changes seen at the cervical medullary junction reported on the MRI performed on 03/28/2023 was no longer observed on the cervical MRI performed on 07/16/2023. The patient presented for reassessment the results of her test were discussed. I informed the patient and her MRI imaging is suggestive of longitudinally extensive transverse myelitis. I informed the patient I am concerned that she may have neuromyelitis optica although her head MRI was unrevealing. Since the patient continues to report upper extremity paresthesias and neck and back pain, I recommended that the patient be admitted for IV methylprednisolone 500 mg IV every 12 hours for 3 days followed by oral steroid taper and IVIG 400 mg/kg IV per day for 5 days and consider Rituximab versus cyclophosphamide versus Mycophenolate. Also I recommended a second opinion by a MS specialist. The patient stated she is doing about the same this morning. Patient was started on IV methylprednisolone and given first dose of IVIG on 10/16/2023. Patient denied any side effects from the medications. The patient's family member was on the phone during my evaluation this morning and plan of treatment was again discussed in detail with him and with the patient. Drug allergies: Bactrim which resulted in GI upset Natural rubber and latex which resulted in skin irritability Metronidazole which resulted in nausea Morphine type reaction unknown Nifedipine type reaction unknown Past medical history: Supraventricular tachycardia Essential hypertension Asthma Vitamin D deficiency Intractable migraine headaches since childhood Left thyroid nodule Cervical degenerative disc disease with small central disc protrusion and mild annular disc bulging at C6-C7 Total abdominal hysterectomy March 2022 Current medications: Corlanor (Ivabradine) 5 mg p.o. twice daily for supraventricular tachycardia Celexa 10 mg p.o. daily Topamax 50 mg p.o. daily for intractable migraine headaches Estrace 0.5 mg p.o. daily Metoprolol 50 mg p.o. twice daily for hypertension Protonix 40 mg p.o. daily Prometrium (progesterone) 100 mg p.o. daily Habits: The patient smokes 1/2 pack/day. The patient denied other drug use. Family history: Remarkable for a father with lupus and heart disease Remarkable for a mother with lupus and hypertension Remarkable for a sister with lupus Remarkable for 3 aunts with lupus Note: To the patient's knowledge she stated she does have any family members with multiple sclerosis Review of Systems General: Reports: 10 or more systems reviewed and unremarkable except in HPI and below Medications/Allergies Home Medications Medication Instructions Recorded Confirmed Last Taken Type estradiol 0.5 mg tablet (Estrace) 0.5 mg PO DAILY 11/28/22 10/16/23 10/16/23 History progesterone micronized 100 mg 100 mg PO QAM 11/28/22 10/16/23 10/16/23 History capsule (Prometrium) topiramate 50 mg tablet (Topamax) 50 mg PO DAILY 11/28/22 10/16/23 10/16/23 History pantoprazole 40 mg tablet,delayed 40 mg PO DAILY 06/11/23 10/16/23 10/16/23 History release ivabradine 5 mg tablet (Corlanor) 5 mg PO BID #180 tabs 09/09/23 10/16/23 10/16/23 Rx metoprolol tartrate 50 mg tablet 50 mg PO BID #90 tabs 09/09/23 10/16/23 10/16/23 Rx Allergies Allergy/AdvReac Type Severity Reaction Status Date / Time sulfamethoxazole Allergy Intermediate sick to Verified 10/15/23 12:54 [From Bactrim] stomach trimethoprim [From Bactrim] Allergy Intermediate sick to Verified 10/15/23 12:54 stomach Latex, Natural Rubber Allergy Mild ADR-Irritab Verified 10/15/23 12:54 le metronidazole Allergy ADR-Nausea Verified 10/15/23 12:54 morphine Allergy Unknown Verified 10/15/23 12:54 nifedipine [From Procardia] Allergy Unknown Verified 10/15/23 12:54 Current Medications Generic Name Dose Route Start Last Admin Trade Name Freq PRN Reason Stop Dose Admin Heparin Sodium (Porcine) 5,000 unit 10/16/23 18:15 10/17/23 05:24 Heparin 5,000 Unit/Ml Inj 1 Ml SUBCUT 5,000 unit Q12H BREANNA Administration Sodium Chloride 1,000 mls @ 75 mls/hr 10/16/23 17:00 10/17/23 05:24 Sodium Chloride 0.9% IV 75 mls/hr .[id number] BREANNA Administration Methylprednisolone Sodium 258 mls @ 258 mls/hr 10/16/23 18:00 10/17/23 06:23 Succinate 500 mg/ Sodium IV 258 mls/hr Chloride Q12H BREANNA Administration Immune Globulin 40 gm in 400 mls @ 0 mls/hr 10/16/23 20:15 10/17/23 06:23 Privigen IV 10/21/23 00:16 0 mg/kg/min Q24H BREANNA 0 mls/hr Titration Protocol As Directed Metoprolol Tartrate 50 mg 10/16/23 18:00 10/16/23 18:16 Metoprolol Tartrate 50 Mg Tablet PO 50 mg BID [facility] Administration Non-Formulary Medication 5 mg 10/16/23 18:00 10/16/23 18:07 Ivabradine [Corlanor] PO Not Given BID BREANNA Non-Formulary Medication 100 mg 10/17/23 06:00 10/17/23 06:22 Progesterone Micronized [Prometrium] PO Not Given QAM BREANNA PFSH Acute PFSH: Medical History Upper respiratory infection Essential hypertension Cough Uterine prolapse Abnormal uterine bleeding (AUB) No pertinent past medical history neghx: dm,thyroid,dvt/pe PCP: Hypertension Vaginal bleeding between periods Left hip pain Right foot pain Fatigue Family history of lupus erythematosus getting evaluated for this Pain and numbness of right upper extremity Shoulder strain Recurrent hematuria Pharyngitis Nausea and vomiting Urinary tract infection Acute exacerbation of chronic low back pain Contact dermatitis GERD (gastroesophageal reflux disease) Migraine with aura Iron deficiency Degenerative joint disease of both hips Vitamin D deficiency Hematuria Otitis media Medication management Tachycardia Asthma Surgical History Hx of knee surgery (~2005) Left Hx laparoscopic cholecystectomy (~2003) S/P tubal ligation 2009 Dr. Dereje Mendenhall Family History Father Lupus Unsure of age of diagnosis Heart disease Mother Lupus Hypertension Sister Lupus, Onset Age: 32 Family/Other Lupus 3 maternal aunts diagnosed with Lupus Grandfather Diabetes Maternal and Paternal Heart disease Maternal and Paternal Hypertension Paternal Grandmother Heart disease Maternal and Paternal Thyroid disease Paternal Denies family history of Colon cancer Ovarian cancer Hypercholesteremia Breast cancer Uterine cancer Stroke Social History Smoking and tobacco/nicotine status: current some day tobacco/nicotine user cigarettes Alcohol intake: never Substance/Drug Use: never Vitals/I&O/Wt Last Vital Signs Temp 97.9 F 10/17/23 04:00 Pulse 73 10/17/23 04:00 Resp 18 10/17/23 04:00 BP 112/71 10/17/23 04:00 Pulse Ox 98 10/17/23 04:00 O2 Del Method Room Air 10/17/23 04:00 10/16/23 10/17/23 10/17/23 22:59 06:59 14:59 Intake Total 1098 / 1098 1639.25 / 2737.25 Output Total 250 / 250 300 / 550 Balance 848 / 848 1339.25 / 2187.25 Weight last 48 hrs Weight 224 lb Weight 225 lb Physical Exam Narrative: The patient is alert and oriented x 3. Speech fluent. Head normocephalic. Neck supple. Cranial nerves II through XII intact. There were no nystagmus. Pupils 4 mm round reactive to light and accommodation. Ophthalmic evaluation revealed no obvious retinal hemorrhages. Extraocular movements intact. Motor testing 5/5 bilaterally. There was no drift. There was no ataxia. Gait was narrow based. Patient was able to ambulate on her heels and toes and tandem walk without difficulty. There was no Romberg. Deep tendon reflexes 2+ bilaterally. Plantar responses flexor bilaterally. There was no clonus. Sensory examination was intact to touch, pinprick, proprioception, vibration modalities and temperature in the upper and lower extremities. Clear. Lungs clear. Heart regular rhythm and rate. Extremities were negative for clubbing cyanosis or edema. Data 10/17/23 05:11 10/17/23 05:11 A&P Assessment and plan (1) Transverse myelitis: Impression: 1. Abnormal cervical MRI on 03/28/2023 secondary to edema involving the central cervical cord at the medullary junction associated with constant neck pain associated with bilateral upper extremity numbness paresthesias and pain and right shoulder pain suggestive of longitudinally extensive transverse myelitis and possibility of neuromyelitis optica cannot be totally excluded 2. Abnormal cervical MRI with contrast 07/16/2023 secondary to reidentified is the increased T2 and FLAIR signal in the cervical cord centered at C3-4 extending over a length of 11 mm. Similar in appearance to 03/28/2023. No enhancement. Demyelinating disease within the differential. The additional signal abnormality at the cervical medullary junction is not evident on the MRI performed on 07/16/2023 when compared with the previous cervical MRI performed on 03/28/2023. No new areas of signal abnormality. Suggestive of longitudinally extensive transverse myelitis 3. Note: Head MRI without and with contrast performed on 07/16/2023 was reported to be within normal limits Plan: 1. Follow-up results of CSF Aquaporin-4 (NMO-IgG) to assist in confirming or excluding neuromyelitis optica 2. Recommend admission for IV methylprednisolone 500 mg IV every 12 hours for 3 days followed by oral prednisone taper at 30 mg p.o. twice daily and decrease by 10 mg every 2 days until patient is off of oral prednisone 3. Recommend admission for IVIG 400 mg/kg/day for 5 days 4. IV normal saline 75 cc/h during IVIG infusion and 1 hour post IVIG infusion each day 5. Patient will be referred to a MS specialist to get second opinion regarding her diagnosis of longitudinally extensive transverse myelitis 6. Return to clinic for reevaluation after the above is been completed 7. Consider Rituximab versus cyclophosphamide versus Mycophenolate. 8. Note: The patient's insurance denied Ocrevus 300 mg IV x 1 dose and repeat 300 mg IV in 2 weeks followed by 600 mg IV every 6 months thereafter for demyelinating disease/multiple sclerosis/involving the cervical cord 9. Will consider IV Plasma exchange, retrial of IV methylprednisolone or IVIG if needed for any acute worsening of the patient's symptoms 10. Potential side effects of the above treatments discussed with the patient Consult Attestations Medical Necessity Statement: Patient evaluated by neurology for longitudinally extensive transverse myelitis, neck pain back pain and paresthesias involving the upper extremities. Coding Level of Care Code 51141 Diagnoses Transverse myelitis G37.3
[2023-10-17] MEDS: estradiol 1 mg Tablet 0.5 MG PO (08:04)
[2023-10-17] MEDS: metoprolol tartrate 50 mg Tablet PO ×2 (08:05→17:23)
[2023-10-17] MEDS: pantoprazole DR 40 mg Tablet PO (08:05)
[2023-10-17] MEDS: topiramate 25 mg Tablet 50 MG PO (08:05)
[2023-10-17] MEDS: diphenhydrAMINE 50 mg/mL SDV 1mL IVP (14:18)
--- NOTE | 2023-10-17 14:35 | P.PN_ITS ---
Subjective 2 Subjective: She reports she is doing okay. Denies any new symptoms. Later on is having some local reaction to adhesive. Vitals/I&O/Wt Last Vital Signs Temp 97.4 F L 10/17/23 11:50 Pulse 75 10/17/23 11:50 Resp 17 10/17/23 11:50 BP 130/73 10/17/23 11:50 Pulse Ox 93 10/17/23 11:50 O2 Del Method Nasal Cannula 10/17/23 11:50 10/16/23 10/17/23 10/17/23 22:59 06:59 14:59 Intake Total 1098 / 1098 1639.25 / 2737.25 1320 / 1320 Output Total 250 / 250 300 / 550 1700 / 1700 Balance 848 / 848 1339.25 / 2187.25 -380 / -380 Weight last 48 hrs Weight 101.605 kg Weight 102.058 kg Physical Exam 2 Narrative: Sitting up in bed. Const: COMMON NORMALS: patient oriented x3 and alert GENERAL APPEARANCE: c ooperative ORIENTATION/CONSCIOUSNESS: Yes awake HENMT: COMMON NORMALS: oropharynx normal Neck/C-Spine: COMMON NORMALS: no JVD Resp: COMMON NORMALS: normal respiratory effort and clear to auscultation bilaterally AUSCULTATION: clear to auscultation bilaterally Cardio: COMMON NORMALS: no JVD, regular rhythm, S1 normal heart sound present, S2 normal heart sound present and No murmurs present (Cardio) RHYTHM: regular rhythm HEART SOUNDS: S1 normal heart sound present and S2 normal heart sound present GI: COMMON NORMALS: Normal to inspection, nondistended, normoactive bowel sounds present, Soft to palpation and non-tender PALPATION: Yes Soft to palpation Extremity: COMMON NORMALS: no joint enlargement and no pedal edema Neuro: COMMON NORMALS: patient oriented x3 and moves all extremities S ENSORIUM/ORIENTATION: Yes alert Data 10/17/23 05:11 10/17/23 05:11 A&P Assessment and plan (1) Transverse myelitis: Without change in symptoms today. Reviewed vitals, CBC, POC glucose, CMP. Reviewed neurology note. Discussed with patient case coordinator. Continue Solu-Medrol, IVIG infusions. Consistent carbohydrate diet, discussed with her some ovation glucose up to 156 today. Discussed risk of hyperglycemia with IV steroids, risk of hypertension, risk of gastritis. She does report some metallic taste in the mouth. Discussed with her continuation of Protonix. She will let us know in case symptoms are worsening. Continue to monitor vitals, reassess blood glucose. Plan Contact dermatitis: Likely local reaction to adhesive. Added a dose of Benadryl as needed for itching. Hypertension: Continue metoprolol. Monitor blood pressures. Tachycardia: Continue metoprolol, ivabradine is not available in hospital, will put in nonformulary for her to be able to use her own medication. On estradiol, progesterone, VTE prophylaxis. Attestations 2 Medical Necessity Statement*: Continue admission for management of transverse myelitis, high-dose IV steroid, IVIG infusions. and High MDM includes amount and/or complexity of data reviewed/ordered [ previous or external records, resulted lab(s)/test(s) and other healthcare professional discussion] and described risk of complication, morbidity or mortality of management as documented Diagnoses Transverse myelitis G37.3
[2023-10-17] MEDS: IMMUNE GLOBULIN 40 GM/400 ML 30.6000000000000014 GM IV (19:55)
[2023-10-18] VITALS (10 sets, daily range): BP systolic 116–152; BP diastolic 62–85; PULSE 48–85; RESP 16–18; TEMP 36.3–36.9; O2SAT 95–98
[2023-10-18] MEDS: heparin 5,000 unit/mL INJ 1 mL 5000 UNIT SUBCUT ×2 (05:47→17:38)
[2023-10-18 06:07] LABS: Basophils % 0.1 %; Lymphocytes % 8.6 %; Mean Corpuscular HGB Conc 33.9 g/dL (30-55); Mean Corpuscular Hemoglobin 30.1 pg (27-33); Mean Corpuscular Volume 88.9 fl (85-98); Mean Platelet Volume 9.9 fL (7.4-10.4); Monocytes # 0.7 10^3/uL (0.2-0.9); Monocytes % 6.4 %; Neutrophils # 9.42 10^3/uL (1.8-7.7); Neutrophils % 84.4 %; Nucleated Red Blood Cells % 0 %; Platelet Count 257 10^3/cmm (157-399); Red Blood Count 4.05 10^6/uL (3.85-5.65); Red Cell Distribution Width 12.3 % (12.1-15.1); White Blood Count 11.16 10^3/uL (3.29-11.43)
[2023-10-18 06:30] LABS: Anion Gap 13.6 (5-19); Blood Urea Nitrogen 11 mg/dL (6-20); Calcium 8.6 mg/dL (8.5-10.5); Carbon Dioxide 19 mmol/L (22-29); Chloride 109 mmol/L (98-107); Creatinine Clr Calc Pharmacy 176.7438; Glomerular Filtration Rate 140.4 mL/min (90-130); Glucose 156 mg/dL (65-115); Osmolality Calculated 289 mOsm/kg (285-295); Potassium 3.6 mmol/L (3.5-5.1); Sodium 138 mmol/L (136-145)
[2023-10-18] MEDS: sodium chloride 0.9% 1,000 ML 75 ML IV (08:31)
[2023-10-18] MEDS: pantoprazole DR 40 mg Tablet PO (08:34)
[2023-10-18] MEDS: topiramate 25 mg Tablet 50 MG PO (08:35)
[2023-10-18] MEDS: estradiol 1 mg Tablet 0.5 MG PO (08:35)
[2023-10-18] MEDS: metoprolol tartrate 50 mg Tablet PO ×2 (08:36→17:37)
[2023-10-18 16:54] LABS: Glucose Point of Care 154 mg/dL (70-110)
--- NOTE | 2023-10-18 20:03 | P.PN_ITS ---
Subjective 2 Subjective: Denies any new symptoms today. Denies any improvement in symptoms of aching and pain around her shoulders although does not have worsening either at the moment. Denies sensory loss. Vitals/I&O/Wt Last Vital Signs Temp 98.3 F 10/18/23 15:42 Pulse 62 10/18/23 15:42 Resp 16 10/18/23 15:42 BP 116/67 10/18/23 15:42 Pulse Ox 95 10/18/23 15:42 O2 Del Method Room Air 10/18/23 15:42 10/18/23 10/18/23 10/18/23 06:59 14:59 22:59 Intake Total 215.287 / 3458.000 1854.25 / 1854.25 513.75 / 2368.00 Output Total 400 / 3600 1300 / 1300 Balance -184.713 / -142.000 554.25 / 554.25 513.75 / 1068.00 Weight last 48 hrs Weight 103.079 kg Weight 101.605 kg Physical Exam 2 Narrative: Sitting up in bed. Const: COMMON NORMALS: patient oriented x3 and alert GENERAL APPEARANCE: c ooperative ORIENTATION/CONSCIOUSNESS: Yes awake HENMT: COMMON NORMALS: oropharynx normal Neck/C-Spine: COMMON NORMALS: no JVD Resp: COMMON NORMALS: normal respiratory effort and clear to auscultation bilaterally AUSCULTATION: clear to auscultation bilaterally Cardio: COMMON NORMALS: no JVD, regular rhythm, S1 normal heart sound present, S2 normal heart sound present and No murmurs present (Cardio) RHYTHM: regular rhythm HEART SOUNDS: S1 normal heart sound present and S2 normal heart sound present GI: COMMON NORMALS: Normal to inspection, nondistended, normoactive bowel sounds present, Soft to palpation and non-tender PALPATION: Yes Soft to palpation Extremity: COMMON NORMALS: no joint enlargement and no pedal edema Neuro: COMMON NORMALS: patient oriented x3 and moves all extremities S ENSORIUM/ORIENTATION: Yes alert OTHER: Do not note a sensory level. Data 10/18/23 05:38 10/18/23 05:38 A&P Assessment and plan (1) Transverse myelitis: Treatment of significant cervical transverse myelitis on MRI imaging symptomatic with shoulder pain, ache, possible neuromyelitis optica. Reviewed vitals, CBC, BMP, Accu-Cheks. Discussed with neurologist. Discussed with shelter case manager. Continue Solu-Medrol, IVIG infusions. Consistent carbohydrate diet, discussed with her some ovation glucose up to 156 today. Monitor with risk of hyperglycemia with IV steroids, risk of hypertension, risk of gastritis. Follow-up CBC. She does report some metallic taste in the mouth. Discussed with her continuation of Protonix. She will let us know in case symptoms are worsening. Continue to monitor vitals, reassess blood glucose. Plan Contact dermatitis: Likely local reaction to adhesive. With improvement. Benadryl as needed for itching. Hypertension: Continue metoprolol. Monitor blood pressures. Tachycardia: Continue metoprolol, ivabradine is not available in hospital, will put in nonformulary for her to be able to use her own medication. On estradiol, progesterone, VTE prophylaxis. Attestations 2 Medical Necessity Statement*: Continue admission for management of transverse myelitis, high-dose IV steroid, IVIG infusions. and High MDM includes amount and/or complexity of data reviewed/ordered [ resulted lab(s)/test(s), ordered lab(s)/test(s) and other healthcare professional discussion] and described risk of complication, morbidity or mortality of management as documented Diagnoses Transverse myelitis G37.3
[2023-10-18] MEDS: IMMUNE GLOBULIN 40 GM/400 ML IV (21:41)
[2023-10-19] VITALS (7 sets, daily range): BP systolic 137–169; BP diastolic 70–93; PULSE 45–81; RESP 18–20; TEMP 36.1–36.7; O2SAT 95–98
[2023-10-19 05:48] LABS: Basophils % 0.1 %; Hematocrit 38.2 % (36-47); Lymphocytes # 0.9 10^3/uL (0.8-4.8); Mean Corpuscular HGB Conc 31.9 g/dL (30-55); Mean Corpuscular Hemoglobin 29.3 pg (27-33); Mean Corpuscular Volume 91.8 fl (85-98); Mean Platelet Volume 9.7 fL (7.4-10.4); Monocytes # 0.4 10^3/uL (0.2-0.9); Monocytes % 4.9 %; Neutrophils # 7.08 10^3/uL (1.8-7.7); Neutrophils % 82.9 %; Nucleated Red Blood Cells % 0 %; Platelet Count 229 10^3/cmm (157-399); Red Blood Count 4.16 10^6/uL (3.85-5.65); Red Cell Distribution Width 12.6 % (12.1-15.1); White Blood Count 8.54 10^3/uL (3.29-11.43)
[2023-10-19 06:13] LABS: Anion Gap 11.7 (5-19); Blood Urea Nitrogen 11 mg/dL (6-20); Calcium 8.1 mg/dL (8.5-10.5); Carbon Dioxide 21 mmol/L (22-29); Chloride 106 mmol/L (98-107); Creatinine Clr Calc Pharmacy 177.3338; Glomerular Filtration Rate 140.4 mL/min (90-130); Glucose 160 mg/dL (65-115); Osmolality Calculated 283 mOsm/kg (285-295); Potassium 3.7 mmol/L (3.5-5.1); Sodium 135 mmol/L (136-145)
[2023-10-19] MEDS: sodium chloride 0.9% 1,000 ML 75 ML IV (06:29)
[2023-10-19] MEDS: heparin 5,000 unit/mL INJ 1 mL 5000 UNIT SUBCUT ×2 (06:30→17:16)
[2023-10-19 06:32] LABS: Glucose Point of Care 149 mg/dL (70-110)
[2023-10-19] MEDS: pantoprazole DR 40 mg Tablet PO (08:04)
[2023-10-19] MEDS: estradiol 1 mg Tablet 0.5 MG PO (08:04)
[2023-10-19] MEDS: metoprolol tartrate 50 mg Tablet PO (08:05)
[2023-10-19] MEDS: topiramate 25 mg Tablet 50 MG PO (08:05)
--- NOTE | 2023-10-19 10:37 | ECG_ITS ---
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 Measurements Intervals [place] Rate: 49 P: 47 [place]: 133 QRS: 48 QRSD: 101 T: 39 QT: 438 QTc: 398 Interpretive Statements SINUS BRADYCARDIA POSSIBLE RIGHT VENTRICULAR CONDUCTION DELAY [RSR (QR) IN V1/V2] Compared to ECG 06/05/2020 23:56:34 Sinus rhythm no longer present Incomplete right bundle-branch block no longer present Electronically Signed On 10-19-2023 20:17:13 CDT by Faviola Barajas M.D. [id number]
[2023-10-19 17:17] LABS: Glucose Point of Care 156 mg/dL (70-110)
[2023-10-19] MEDS: IMMUNE GLOBULIN 40 GM/400 ML 30.6000000000000014 GM IV (20:55)
--- NOTE | 2023-10-19 21:27 | P.PN_ITS ---
Subjective 2 Subjective: Denies any symptoms. There is slight improvement in her shoulder pain/discomfort. Noted bradycardic today, pulse down to as low as 45. Vitals/I&O/Wt Last Vital Signs Temp 97.5 F L 10/19/23 19:13 Pulse 57 L 10/19/23 19:13 Resp 18 10/19/23 19:13 BP 160/85 10/19/23 19:13 Pulse Ox 96 10/19/23 19:13 O2 Del Method Room Air 10/19/23 19:13 10/19/23 10/19/23 10/19/23 06:59 14:59 22:59 Intake Total 744.800 / 4352.250 978 / 978 738 / 1716 Output Total 500 / 2700 1999 / 1999 800 / 2800 Balance 244.800 / 1652.250 -1022 / -1022 -62 / -1084 Weight last 48 hrs Weight 103.674 kg Weight 103.079 kg Physical Exam 2 Narrative: Sitting up in bed. Const: COMMON NORMALS: patient oriented x3 and alert GENERAL APPEARANCE: c ooperative ORIENTATION/CONSCIOUSNESS: Yes awake HENMT: COMMON NORMALS: oropharynx normal Neck/C-Spine: COMMON NORMALS: no JVD Resp: COMMON NORMALS: normal respiratory effort and clear to auscultation bilaterally AUSCULTATION: clear to auscultation bilaterally Cardio: COMMON NORMALS: no JVD, regular rhythm, S1 normal heart sound present, S2 normal heart sound present and No murmurs present (Cardio) RHYTHM: regular rhythm HEART SOUNDS: S1 normal heart sound present and S2 normal heart sound present GI: COMMON NORMALS: Normal to inspection, nondistended, normoactive bowel sounds present, Soft to palpation and non-tender PALPATION: Yes Soft to palpation Extremity: COMMON NORMALS: no joint enlargement and no pedal edema Neuro: COMMON NORMALS: patient oriented x3 and moves all extremities S ENSORIUM/ORIENTATION: Yes alert OTHER: Do not note a sensory level. Data 10/19/23 05:32 10/19/23 05:32 A&P Assessment and plan (1) Transverse myelitis: Reviewed vitals, few readings of slightly elevated blood pressure, 160/85, reassess. Stop IV fluid. Reviewed POC glucose, glucose 160s. She now is some mild improvement in symptoms. Continue Solu-Medrol, IVIG. Reviewed CBC, chemistry. At risk of uremia with high-dose IV steroid. At risk of hyperglycemia, hypertension. Reassess. She does report some metallic taste in the mouth. Discussed with her continuation of Protonix. She will let us know in case symptoms are worsening. Continue to monitor vitals, reassess blood glucose. (2) Sinus bradycardia: Heart rates down in the 50s today, as low as 46. Reschedule metoprolol starting tomorrow morning 12.5 mg. Plan Contact dermatitis: Likely local reaction to adhesive. With improvement. Benadryl as needed for itching. Hypertension: Continue metoprolol. Monitor blood pressures. Tachycardia: Continue metoprolol, ivabradine is not available in hospital, will put in nonformulary for her to be able to use her own medication. On estradiol, progesterone, VTE prophylaxis. Attestations 2 Medical Necessity Statement*: Continue admission for management of transverse myelitis, high-dose IV steroid, IVIG infusions. Diagnoses Transverse myelitis G37.3 Sinus bradycardia R00.1
[2023-10-20] MEDS: acetaminophen 325 mg Tablet 650 MG PO (01:43)
[2023-10-20 03:07] VITALS: BP 165/88; PULSE 55; RESP 18; TEMP 36.4; O2SAT 97
[2023-10-20] MEDS: heparin 5,000 unit/mL INJ 1 mL 5000 UNIT SUBCUT (05:29)
[2023-10-20 06:00] LABS: Basophils % 0.2 %; Eosinophils % 0.1 %; Lymphocytes # 1.2 10^3/uL (0.8-4.8); Lymphocytes % 13.3 %; Mean Corpuscular HGB Conc 32.9 g/dL (30-55); Mean Corpuscular Hemoglobin 29.6 pg (27-33); Mean Corpuscular Volume 89.9 fl (85-98); Mean Platelet Volume 9.6 fL (7.4-10.4); Monocytes # 0.7 10^3/uL (0.2-0.9); Monocytes % 7.5 %; Neutrophils # 6.45 10^3/uL (1.8-7.7); Neutrophils % 74.5 %; Nucleated Red Blood Cells % 0.2 %; Platelet Count 237 10^3/cmm (157-399); Red Blood Count 4.67 10^6/uL (3.85-5.65); Red Cell Distribution Width 12.1 % (12.1-15.1); White Blood Count 8.66 10^3/uL (3.29-11.43)
[2023-10-20 06:13] LABS: Anion Gap 14.5 (5-19); Blood Urea Nitrogen 12 mg/dL (6-20); Calcium 8.3 mg/dL (8.5-10.5); Carbon Dioxide 22 mmol/L (22-29); Chloride 103 mmol/L (98-107); Creatinine Clr Calc Pharmacy 174.8318; Glomerular Filtration Rate 140.4 mL/min (90-130); Glucose 151 mg/dL (65-115); Osmolality Calculated 285 mOsm/kg (285-295); Potassium 3.5 mmol/L (3.5-5.1); Sodium 136 mmol/L (136-145)
[2023-10-20 06:51] LABS: Glucose Point of Care 141 mg/dL (70-110)
[2023-10-20 07:52] VITALS: BP 175/83; PULSE 56; RESP 19; TEMP 36.4; O2SAT 97
[2023-10-20 08:19] VITALS: BP 145/80; PULSE 71
[2023-10-20] MEDS: estradiol 1 mg Tablet 0.5 MG PO (08:20)
[2023-10-20] MEDS: pantoprazole DR 40 mg Tablet PO (08:20)
[2023-10-20] MEDS: metoprolol tartrate 25 mg Tablet 12.5 MG PO (08:20)
[2023-10-20] MEDS: topiramate 25 mg Tablet 50 MG PO (08:20)
[2023-10-20 11:46] VITALS: BP 133/76; PULSE 51; RESP 18; TEMP 36.5; O2SAT 97
[2023-10-20] MEDS: IMMUNE GLOBULIN 40 GM/400 ML 30.6000000000000014 GM IV (13:40)
[2023-10-20 13:52] VITALS: BP 133/76; PULSE 51; RESP 18; TEMP 36.5; O2SAT 97
--- NOTE | 2023-10-20 15:12 | PM.DCS ---
Discharge Providers Date of Admission: 10/16/23 16:22 Date of Discharge: October 20, 2023 Attending Provider at Admission: Fabrice Washington MD Attending Provider at Discharge: Driss Mendenhall Primary Care Provider: Anjelica Mirza NP Diagnoses at Discharge Discharge Diagnosis (1) Transverse myelitis: Status: Acute (2) Sinus bradycardia: Status: Acute Reason for Visit Reason for Visit: MS Hospital Course Hospital Course Less than 35 LAD with history of hypertension, tachycardia, shoulder and arm pain with finding of extensive transverse myelitis on cervical MRI, question of possible neuromyelitis optica was being assessed by neurology, with concern of symptomatic extensive findings on MRI, concern for progressive disease after outpatient treatment could not be secured since she was symptomatic with concern for severely disabling and/or life-threatening progression was admitted for additional treatment with high-dose steroid pulse, IVIG. Tolerated the treatment well. Showing some improvement in her symptoms. As per neurology instructions will be discharging with prednisone taper over the next 8 days, follow-up with neurology in office. Physical Exam Narrative: Sitting up in bed. Visited by family. Const: COMMON NORMALS: patient oriented x3 and alert GENERAL APPEARANCE: cooperative ORIENTATION/CONSCIOUSNESS: Yes awake HENMT: COMMON NORMALS: oropharynx normal Neck/C-Spine: COMMON NORMALS: no JVD Resp: COMMON NORMALS: normal respiratory effort and clear to auscultation bilaterally AUSCULTATION: clear to auscultation bilaterally Cardio: COMMON NORMALS: no JVD, regular rhythm, S1 normal heart sound present, S2 normal heart sound present and No murmurs present (Cardio) RHYTHM: regular rhythm HEART SOUNDS: S1 normal heart sound present and S2 normal heart sound present GI: COMMON NORMALS: Normal to inspection, nondistended, normoactive bowel sounds present, Soft to palpation and non-tender PALPATION: Yes Soft to palpation Extremity: COMMON NORMALS: no joint enlargement and no pedal edema Neuro: COMMON NORMALS: patient oriented x3 and moves all extremities SENSORIUM/ORIENTATION: Yes alert OTHER: Do not note a sensory level. Discharge Data Studies Completed and Pending Laboratory Results WBC 8.66 10^3/uL (3.29-11.43) 10/20/23 05:38 RBC 4.67 10^6/uL (3.85-5.65) 10/20/23 05:38 Hgb 13.80 g/dL (11.27-16.99) 10/20/23 05:38 Hct 42.0 % (36-47) 10/20/23 05:38 MCV 89.9 fl (85-98) 10/20/23 05:38 MCH 29.6 pg (27-33) 10/20/23 05:38 MCHC 32.9 g/dL (30-55) 10/20/23 05:38 RDW 12.1 % (12.1-15.1) 10/20/23 05:38 Plt Count 237 10^3/cmm (157-399) 10/20/23 05:38 MPV 9.6 fL (7.4-10.4) 10/20/23 05:38 Neut % (Auto) 74.5 % 10/20/23 05:38 Lymph % (Auto) 13.3 % 10/20/23 05:38 Hopkins % (Auto) 7.5 % 10/20/23 05:38 Eos % (Auto) 0.1 % 10/20/23 05:38 Baso % (Auto) 0.2 % 10/20/23 05:38 Neut # (Auto) 6.45 10^3/uL (1.8-7.7) 10/20/23 05:38 Lymph # (Auto) 1.2 10^3/uL (0.8-4.8) 10/20/23 05:38 Hopkins # (Auto) 0.7 10^3/uL (0.2-0.9) 10/20/23 05:38 Eos # (Auto) 0.0 10^3/uL (0.0-0.8) 10/20/23 05:38 Baso # (Auto) 0.0 10^3/uL (0.0-0.1) 10/20/23 05:38 Nucleated RBC % (auto) 0.2 % 10/20/23 05:38 Nucleated RBCs # 0.0 /100WBC 10/20/23 05:38 Sodium 136 mmol/L (136-145) 10/20/23 05:38 Potassium 3.5 mmol/L (3.5-5.1) 10/20/23 05:38 Chloride 103 mmol/L (98-107) 10/20/23 05:38 Carbon Dioxide 22 mmol/L (22-29) 10/20/23 05:38 Anion Gap 14.5 (5-19) 10/20/23 05:38 BUN 12 mg/dL (6-20) 10/20/23 05:38 Creatinine 0.5 mg/dL (0.5-0.9) 10/20/23 05:38 GFR Calculation 140.4 mL/min (90-130) H 10/20/23 05:38 Glucose 151 mg/dL (65-115) H 10/20/23 05:38 POC Glucose 141 mg/dL (70-110) H 10/20/23 06:45 Calculated Osmolality 285 mOsm/kg (285-295) 10/20/23 05:38 Calcium 8.3 mg/dL (8.5-10.5) L 10/20/23 05:38 Total Bilirubin 0.3 mg/dL (0.15-1.2) 10/17/23 05:11 AST 12 U/L (0-32) 10/17/23 05:11 ALT 12 U/L (0-33) 10/17/23 05:11 Alkaline Phosphatase 86 U/L (35-105) 10/17/23 05:11 Total Protein 8.1 g/dL (6.6-8.7) 10/17/23 05:11 Albumin 3.7 g/dL (3.5-5.2) 10/17/23 05:11 Globulin 4.4 g/dL (1.3-4.6) 10/17/23 05:11 Vitals Last Vital Signs Temp 97.7 F 10/20/23 13:52 Pulse 51 L 10/20/23 13:52 Resp 18 10/20/23 13:52 BP 133/76 10/20/23 13:52 Pulse Ox 97 10/20/23 13:52 O2 Del Method Room Air 10/20/23 13:52 Discharge Plan Discharge Patient Disposition: Home Condition: Stable Prescriptions: New prednisone 20 mg tablet See Rx Instructions .ROUTE .COMPLEX Qty: 13 0RF Rx Instructions: 30 mg twice daily for 2 days, 20 mg twice daily 2 days, 10 mg twice daily 2 days, 10 mg daily 2 days, then stop Continued estradiol [Estrace] 0.5 mg tablet 0.5 mg PO DAILY Rx Instructions: off 5 days; repeat cycle progesterone micronized [Prometrium] 100 mg capsule 100 mg PO QAM Rx Instructions: off 7 days; repeat cycle topiramate [Topamax] 50 mg tablet 50 mg PO DAILY Corlanor 5 mg tablet 5 mg PO BID Qty: 180 3RF Rx Instructions: must administer with a meal/food metoprolol tartrate 50 mg tablet 50 mg PO BID Qty: 90 3RF pantoprazole 40 mg tablet,delayed release (DR/EC) 40 mg PO DAILY Discharge Orders: Discharge Order (Routine); Ordered 10/20/23 Ordered By: Driss Mendenhall Referrals: Fabrice Washington MD [Physician] - 4-7 days (We have notified your physician's clinic of the need for a follow-up appointment to be scheduled. If you have not heard from them within the next 2 business days, please call them directly. ) Discharge Diet: Diabetic Patient Instructions: Prednisone (By mouth), Opioid Safety Activity Restrictions/Additional Instructions: Complete prednisone taper starting with 30 mg twice daily, decreasing by 10 mg every 2 days as per instructions, 30 mg twice daily to start, after 2 days 20 mg twice daily for 2 days, then 10 mg twice daily for 2 days, then 10 mg daily for 2 days, then stop. Maintain consistent carbohydrate diet while on steroid. Follow-up with neurology in office next week. Seek medical attention immediately in case of any worsening or new concerning symptoms. Discharge Attestations Time Spent in Discharge Care*: greater than 30 min Quality Metrics Clinical Quality Measures [ No reported AMI, CVA or VTE this stay] Coding Level of Care Code 95360 Total time (in minutes) for Discharge: 40 Diagnoses Transverse myelitis G37.3 Sinus bradycardia R00.1
[2023-10-20 16:15] VITALS: BP 133/76; PULSE 51; RESP 18; TEMP 36.5; O2SAT 97
== END 2023-10-20 16:15 | disposition home or self-care (01) | DRG 99 ==
PROVIDERS: Admitting Provider Psychiatry & Neurology Neurology; PCP Nurse Practitioner Family; Visit Provider Internal Medicine
DX: G37.3 Acute transverse myelitis in demyelinating disease of central nervous system (principal); R00.1 Bradycardia, unspecified; I10 Essential (primary) hypertension; K21.9 Gastro-esophageal reflux disease without esophagitis; E55.9 Vitamin D deficiency, unspecified; F17.210 Nicotine dependence, cigarettes, uncomplicated; H53.8 Other visual disturbances; J45.909 Unspecified asthma, uncomplicated; G43.919 Migraine, unspecified, intractable, without status migrainosus; E04.1 Nontoxic single thyroid nodule; M50.223 Other cervical disc displacement at C6-C7 level; Z79.890 Hormone replacement therapy; Z87.440 Personal history of urinary (tract) infections
CPT/HCPCS: 36415; 36416; 80048; 80053; 82962; 85025; 93005; 96372; J1200; J1459; J1644; J2919; J7030; J7050; J8499

== ENCOUNTER 2023-11-14 07:47 | Oncology outpatient (recurring) (ONCR) | payer MEDICAID, SELFPAY ==
[2023-11-14] VITALS (9 sets, daily range): BP systolic 101–136; BP diastolic 67–87; PULSE 59–80; RESP 16; TEMP 36.3–36.6; O2SAT 97–99
[2023-11-14] MEDS: acetaminophen 325 mg Tablet 650 MG PO (08:25)
[2023-11-14] MEDS: diphenhydrAMINE 25 mg Capsule PO (08:26)
[2023-11-14] MEDS: immune globulin (Privigen ONC) 40 GM in empty flexible container 1 EACH IV (09:22)
== END 2023-12-08 23:59 | disposition home or self-care (01) ==
PROVIDERS: PCP Nurse Practitioner Family; Visit Provider Psychiatry & Neurology Neurology
DX: G37.3 Acute transverse myelitis in demyelinating disease of central nervous system (principal)
CPT/HCPCS: 96365; 96366; J1459

== ENCOUNTER 2023-11-25 14:52 | Outpatient (CLI) | payer MEDICAID, SELFPAY ==
--- NOTE | 2023-11-25 15:15 | MR_ITS ---
WS: [id number] MRI HEAD WITHOUT AND WITH GADOLINIUM ENHANCEMENT WITH ATTENTION TO THE ORBITS. TECHNIQUE: Sagittal T1, T2 axial, T2 axial FLAIR, axial susceptibility weighted imaging, axial diffus ion weighted images, and coronal T2 images were obtained. Pre and post-T1 axial and post T1 coronal i mages. ADC and FSPGR images. Postgadolinium images were obtained with attention to the orbits with fa t saturation technique. Orbital protocol utilized. CLINICAL INFORMATION: G37.9 - Demyelinating disease of central nervous system, ... COMPARISON: MRI 07/16/2023 FINDINGS: No evidence of restricted diffusion to suggest acute ischemia. Ventricular system and basilar cistern s are patent. No suspicious intracranial signal abnormalities. Normal hernandez-white differentiation. Nor mal posterior fossa. Normal vascular flow voids at the skull base. No extra-axial fluid collections. Paranasal sinuses and mastoid air cells are well aerated. Normal posterior nasopharynx. Normal optic chiasm and pituitary infundibulum. No evidence of optic nerve edema or optic neuritis. Normal optic chiasm and pituitary infundibulum. N o abnormal gadolinium enhancement. Normal dural venous sinuses. MR/MR head orbits wo/w* [id number] IMPRESSION: 1. No evidence of restricted diffusion to suggest acute ischemia. 2. No suspicious intracranial signal abnormalities. 3. No enhancing lesions to indicate active disease. 4. Normal optic chiasm and pituitary infundibulum. 5. No evidence of optic nerve edema or optic neuritis. Normal visualized rectu s muscles. 6. No other suspicious findings.
[2023-11-25] MEDS: gadobenate dimeglumine 20 mL vial IV (15:41)
== END 2023-11-25 14:53 | disposition home or self-care (01) ==
LOC: RAD 14:52
PROVIDERS: PCP Nurse Practitioner Family; Visit Provider Psychiatry & Neurology Neurology
DX: G37.9 Demyelinating disease of central nervous system, unspecified (principal); G95.19 Other vascular myelopathies
CPT/HCPCS: 70543; 70553; A9577

== ENCOUNTER 2023-12-16 07:59 | Oncology outpatient (recurring) (ONCR) | payer MEDICAID, SELFPAY ==
[2023-12-16] VITALS (10 sets, daily range): BP systolic 101–128; BP diastolic 62–82; PULSE 64–77; RESP 16–18; TEMP 36–36.4; O2SAT 94–99
[2023-12-16] MEDS: immune globulin (Privigen ONC) 40 GM in empty flexible container 1 EACH IV (09:10)
== END 2024-01-08 23:59 | disposition home or self-care (01) ==
PROVIDERS: PCP Nurse Practitioner Family; Visit Provider Psychiatry & Neurology Neurology
DX: G37.3 Acute transverse myelitis in demyelinating disease of central nervous system (principal)
CPT/HCPCS: 96365; 96366; J1459

== ENCOUNTER 2024-01-14 08:19 | Oncology outpatient (recurring) (ONCR) | payer BC, MEDICAID, SELFPAY ==
[2024-01-14] VITALS (9 sets, daily range): BP systolic 104–112; BP diastolic 65–76; PULSE 55–63; RESP 17–18; TEMP 36.2–36.6; O2SAT 96–98
[2024-01-14] MEDS: immune globulin (Privigen ONC) 40 GM in empty flexible container 1 EACH IV (08:58)
== END 2024-02-08 23:55 | disposition home or self-care (01) ==
PROVIDERS: PCP Nurse Practitioner Family; Visit Provider Psychiatry & Neurology Neurology
DX: Z79.899 Other long term (current) drug therapy (principal); G04.91 Myelitis, unspecified
CPT/HCPCS: 96365; 96366; J1459

== ENCOUNTER 2024-02-03 15:03 | Emergency (ER) | payer BC, MEDICAID, SELFPAY ==
[2024-02-03 15:08] VITALS: BP 140/86; PULSE 121; RESP 16; TEMP 36.7
--- NOTE | 2024-02-03 16:30 | W.ED.HA ---
HPI - Headache General: Chief Complaint: Headache Stated Complaint: migraine Time Seen by Provider: 02/03/24 16:06 History of Present Illness: 33-year-old female who presented to the emergency room at the direction of her neurologist. I did not see this patient today. I was planning on seeing this patient to complete a medical screening exam however she left before I was able to see her. Patient was seen today in neurology. She had had a spinal tap done last week and evaluation for MS. She had contacted neurology and discussed with them Dr. Washington had wanted her to have a blood patch. I had called over here asking how that could be arranged. Since it was during the day we recommended that they contact anesthesia usually those are done in outpatients. There was some confusions about arranging for all the logistics and the patient was directed to the emergency room to have the blood patch done. After she had arrived here Dr. Washington's office had become aware that these were usually done by anesthesia in outpatient and contact the patient after she had registered here and directed her to outpatient where they had made arrangements for her to have her blood patch done by Dr. English. In the same timeframe the staff had been keeping me up-to-date on this since she had registered I had plan to quickly see and evaluate her to make sure there was no emergent medical condition. The plan was to document and then discharged her to get the blood patch (outpatients. Patient left without being seen before we could complete this. We were able to confirm that she had gone over to outpatients and was getting definitive care there. Related Data Home Medications Medication Instructions Recorded Confirmed estradiol 0.5 mg tablet (Estrace) 0.5 mg PO DAILY 11/28/22 02/03/24 progesterone micronized 100 mg 100 mg PO QAM 11/28/22 02/03/24 capsule (Prometrium) topiramate 50 mg tablet (Topamax) 50 mg PO DAILY 11/28/22 02/03/24 pantoprazole 40 mg tablet,delayed 40 mg PO DAILY 06/11/23 02/03/24 release Previous Rx's Medication Instructions Recorded ivabradine 5 mg tablet (Corlanor) 5 mg PO BID #180 tabs 09/09/23 metoprolol tartrate 50 mg tablet 50 mg PO BID #90 tabs 09/09/23 prednisone 20 mg tablet See Rx Instructions .Route 10/24/23 .COMPLEX #13 tabs Allergies Allergy/AdvReac Type Severity Reaction Status Date / Time sulfamethoxazole Allergy Intermediate sick to Verified 02/03/24 15:13 [From Bactrim] stomach trimethoprim [From Bactrim] Allergy Intermediate sick to Verified 02/03/24 15:13 stomach Latex, Natural Rubber Allergy Mild ADR-Irritab Verified 02/03/24 15:13 le metronidazole Allergy ADR-Nausea Verified 02/03/24 15:13 morphine Allergy Unknown Verified 02/03/24 15:13 nifedipine [From Procardia] Allergy Unknown Verified 02/03/24 15:13 PFSH ED PFSH: Medical History Upper respiratory infection Essential hypertension Cough Uterine prolapse Abnormal uterine bleeding (AUB) No pertinent past medical history neghx: dm,thyroid,dvt/pe PCP: Hypertension Vaginal bleeding between periods Left hip pain Right foot pain Fatigue Family history of lupus erythematosus getting evaluated for this Pain and numbness of right upper extremity Shoulder strain Recurrent hematuria Pharyngitis Nausea and vomiting Urinary tract infection Acute exacerbation of chronic low back pain Contact dermatitis GERD (gastroesophageal reflux disease) Migraine with aura Iron deficiency Degenerative joint disease of both hips Vitamin D deficiency Hematuria Otitis media Medication management Tachycardia Asthma Surgical History Hx of knee surgery (~2005) Left Hx laparoscopic cholecystectomy (~2003) S/P tubal ligation 2009 Dr. Dereje Mendenhall Family History Father Lupus Unsure of age of diagnosis Heart disease Mother Lupus Hypertension Sister Lupus, Onset Age: 32 Family/Other Lupus 3 maternal aunts diagnosed with Lupus Grandfather Diabetes Maternal and Paternal Heart disease Maternal and Paternal Hypertension Paternal Grandmother Heart disease Maternal and Paternal Thyroid disease Paternal Denies family history of Colon cancer Ovarian cancer Hypercholesteremia Breast cancer Uterine cancer Stroke Social History Smoking and tobacco/nicotine status: never used tobacco/nicotine Alcohol intake: never Substance/Drug Use: never Course Vital Signs: Vital signs: Vital Signs Temperature 98.1 F 02/03/24 15:08 Pulse Rate 121 H 02/03/24 15:08 Respiratory Rate 16 02/03/24 15:08 Blood Pressure 140/86 02/03/24 15:08 MDM - Headache Medical Decision Making See notes above. Patient left before medical screening exam could be completed. She had been directed here by her neurologist. There was some simple logistical misunderstandings and she was redirected by the neurologist office to outpatients, after she had registered in the emergency room. My understanding was the neurologist office was trying to expedite the patient's care and was not aware that she had registered in the ER. No radiology studies performed this visit Discharge Plan Discharge Patient Disposition: Left Without Being Seen Clinical Impression: Headache, post-lumbar puncture Coding Level of Care Code ED [employer]
== END 2024-02-03 16:15 | disposition left against medical advice (07) ==
PROVIDERS: Emergency Provider Family Medicine; PCP Nurse Practitioner Family
DX: G97.1 Other reaction to spinal and lumbar puncture (principal); Z53.21 Procedure and treatment not carried out due to patient leaving prior to being seen by health care provider; I10 Essential (primary) hypertension

== ENCOUNTER 2024-02-03 16:39 | Outpatient (CLI) | payer BC, MEDICAID, SELFPAY ==
[2024-02-03 16:48] VITALS: BMI 40.2
[2024-02-03 16:57] VITALS: BP 160/98; PULSE 87; RESP 16; TEMP 36.4; O2SAT 98
--- NOTE | 2024-02-03 17:15 | ANES.PREANE2 ---
Pre-Anesthetic Assessment Height/Weight: Height 1.57 m Weight 99.79 kg Temp Pulse Resp BP Pulse Ox O2 Del Method 97.5 F L 87 16 160/98 98 Room Air 02/03/24 16:57 02/03/24 16:57 02/03/24 16:57 02/03/24 16:57 02/03/24 16:57 02/03/24 16:57 blood patch Familial anesthetic complications: None Social Tobacco and No alcohol Exam alert, oriented x 3, clear to auscultation bilaterally and regular rate & rhythm Airway Mallampati: Class IV CV/HEM Hypertension GI Gastroesophageal Reflux Disease Neuropsych Neuropathy (MS (demyelenating d/o0) Anesthetic Plan ASA status: 3 Anesthesia: Anesthesia Evaluation and Regional (specify below) Risk of > 500 ml blood loss (7ml/kg in children): No Other Pertinent Information Discussed with patient risks of procedure including infection w/ abscess, hematoma with cord compression, repeat dural puncture, exacerbation of preexisting neurologic symptoms, as well as failure of procedure. Discussed alternative treatments including; waiting for self-resolution, fluids, caffeine, and NSAIDS/Acetaminophen. Patient desired to try blood patch. Medications/Allergies Home Medications Medication Instructions Recorded Confirmed Last Taken Type estradiol 0.5 mg tablet (Estrace) 0.5 mg PO DAILY 11/28/22 02/03/24 02/02/24 History progesterone micronized 100 mg 100 mg PO QAM 11/28/22 02/03/24 02/02/24 History capsule (Prometrium) topiramate 50 mg tablet (Topamax) 50 mg PO DAILY 11/28/22 02/03/24 02/02/24 History pantoprazole 40 mg tablet,delayed 40 mg PO DAILY 06/11/23 02/03/24 02/02/24 History release ivabradine 5 mg tablet (Corlanor) 5 mg PO BID #180 tabs 09/09/23 02/03/24 02/02/24 Rx metoprolol tartrate 50 mg tablet 50 mg PO BID #90 tabs 09/09/23 02/03/24 02/02/24 Rx prednisone 20 mg tablet See Rx Instructions .Route 10/24/23 02/03/24 02/02/24 Rx .COMPLEX #13 tabs Allergies Allergy/AdvReac Type Severity Reaction Status Date / Time sulfamethoxazole Allergy Intermediate sick to Verified 02/03/24 15:13 [From Bactrim] stomach trimethoprim [From Bactrim] Allergy Intermediate sick to Verified 02/03/24 15:13 stomach Latex, Natural Rubber Allergy Mild ADR-Irritab Verified 02/03/24 15:13 le metronidazole Allergy ADR-Nausea Verified 02/03/24 15:13 morphine Allergy Unknown Verified 02/03/24 15:13 nifedipine [From Procardia] Allergy Unknown Verified 02/03/24 15:13 PFSH Anesthesia Medical History Upper respiratory infection Essential hypertension Cough Uterine prolapse Abnormal uterine bleeding (AUB) No pertinent past medical history neghx: dm,thyroid,dvt/pe PCP: Hypertension Vaginal bleeding between periods Left hip pain Right foot pain Fatigue Family history of lupus erythematosus getting evaluated for this Pain and numbness of right upper extremity Shoulder strain Recurrent hematuria Pharyngitis Nausea and vomiting Urinary tract infection Acute exacerbation of chronic low back pain Contact dermatitis GERD (gastroesophageal reflux disease) Migraine with aura Iron deficiency Degenerative joint disease of both hips Vitamin D deficiency Hematuria Otitis media Medication management Tachycardia Asthma Surgical History Hx of knee surgery (~2005) Left Hx laparoscopic cholecystectomy (~2003) S/P tubal ligation 2009 Dr. Dereje Mendenhall Family History Father Lupus Unsure of age of diagnosis Heart disease Mother Lupus Hypertension Sister Lupus, Onset Age: 32 Family/Other Lupus 3 maternal aunts diagnosed with Lupus Grandfather Diabetes Maternal and Paternal Heart disease Maternal and Paternal Hypertension Paternal Grandmother Heart disease Maternal and Paternal Thyroid disease Paternal Denies family history of Colon cancer Ovarian cancer Hypercholesteremia Breast cancer Uterine cancer Stroke Social History Smoking and tobacco/nicotine status: never used tobacco/nicotine Alcohol intake: never Substance/Drug Use: never Data Anesthesia Cardiac Studies: Echocardiogram Ultrasound 09/08/20 Cardiac Event Monitor 06/28/20
--- NOTE | 2024-02-03 17:15 | SUR.PREOP ---
Blood patch finished and pt tolerated procedure well. ROM and sensation to bilateral feet. Pt instructed to lay flat for 1 hour. Call stinson in reach.
--- NOTE | 2024-02-03 17:18 | ANES.PROC ---
Anesthesia Procedures Procedure/Date: 02/03/24 Epidural: Time Out Performed: Yes Consents Signed: Procedure Consent Consent: requested by attending/covering physician, from patient, from other, risks and benefits reviewed and patient agrees to proceed Lumbar Level: L3-L4 Epidural position: sitting Epidural procedure: sterile prep of area, 1% lidocaine to numb the area and 18 g needle Additional Comments: IV obtained in patient's L hand. Patient's R arm and hand sterilely prepped copiously with chloraprep and placed on blue sterile drape. Sterile drop of 20 cc syryinge and 20g IV onto sterile field. ALBA at 7 cm with tuohy needle, 10 cc of NS injected and patient denoted improvement of headache with this amount of volume replacement. 20g IV obtained and attempts to draw venous blood stopped at approximately 7 or 8 cc, this amount was injected into patient's back via tuohy. Patient reported feeling some improvement. Patient was then placed in recumbent position and instructed to do so for 1 hr. With smaller aliquot of heme obtained, blood patch may have higher failure rate. Patient denoted understanding, saying her IVs have frequently clotted off.
== END 2024-02-03 16:40 | disposition home or self-care (01) ==
LOC: RAD 16:41 → OR 16:50
PROVIDERS: PCP Nurse Practitioner Family; Visit Provider Anesthesiology
DX: G97.1 Other reaction to spinal and lumbar puncture (principal)
CPT/HCPCS: 36415; 62273

== ENCOUNTER 2024-02-19 12:12 | Oncology outpatient (recurring) (ONCR) | payer BC, MEDICAID, SELFPAY ==
[2024-02-19] VITALS (8 sets, daily range): BP systolic 100–117; BP diastolic 62–85; PULSE 17–72; RESP 15–16; TEMP 36.4–36.6; O2SAT 95–100
[2024-02-19] MEDS: immune globulin (Privigen ONC) 40 GM in empty flexible container 1 EACH IV (13:25)
== END 2024-03-09 23:59 | disposition home or self-care (01) ==
PROVIDERS: PCP Nurse Practitioner Family; Visit Provider Psychiatry & Neurology Neurology
DX: Z79.899 Other long term (current) drug therapy; G37.3 Acute transverse myelitis in demyelinating disease of central nervous system
CPT/HCPCS: 96365; 96366; J1459

== ENCOUNTER 2024-03-19 11:46 | Oncology outpatient (recurring) (ONCR) | payer BC, MEDICAID, SELFPAY ==
[2024-03-19] VITALS (10 sets, daily range): BP systolic 115–132; BP diastolic 74–84; PULSE 70–91; RESP 16; TEMP 36.1–36.6; O2SAT 96–97
--- NOTE | 2024-03-19 12:34 | PC.NURSE ---
patient reports taking tylenol and benadryl premedication at home prior to arrival.
[2024-03-19] MEDS: immune globulin (Privigen ONC) 40 GM in empty flexible container 1 EACH IV (12:36)
== END 2024-04-09 23:59 | disposition home or self-care (01) ==
PROVIDERS: PCP Nurse Practitioner Family; Visit Provider Psychiatry & Neurology Neurology
DX: G37.3 Acute transverse myelitis in demyelinating disease of central nervous system (principal); Z79.899 Other long term (current) drug therapy
CPT/HCPCS: 96365; J1459

== ENCOUNTER 2024-04-16 08:28 | Oncology outpatient (recurring) (ONCR) | payer BC, MEDICAID, SELFPAY ==
[2024-04-16] VITALS (8 sets, daily range): BP systolic 104–137; BP diastolic 65–79; PULSE 55–66; RESP 16; TEMP 36.2–36.7; O2SAT 97–99
--- NOTE | 2024-04-16 08:55 | PC.NURSE ---
patient reports taking premedication of tylenol 1000mg PO at 0700, denies benadryl.
[2024-04-16] MEDS: immune globulin (Privigen ONC) 40 GM in empty flexible container 1 EACH IV (09:13)
== END 2024-05-09 23:59 | disposition home or self-care (01) ==
LOC: ONCMED 08:29
PROVIDERS: PCP Nurse Practitioner Family; Visit Provider Psychiatry & Neurology Neurology
DX: Z79.899 Other long term (current) drug therapy (principal); G37.3 Acute transverse myelitis in demyelinating disease of central nervous system
CPT/HCPCS: 96365; 96366; J1459

== ENCOUNTER 2024-05-19 08:09 | Oncology outpatient (recurring) (ONCR) | payer BC, MEDICAID, SELFPAY ==
[2024-05-19] VITALS (8 sets, daily range): BP systolic 105–127; BP diastolic 64–81; PULSE 65–770; RESP 14–16; TEMP 36–36.6; O2SAT 95–99
[2024-05-19] MEDS: immune globulin (Privigen ONC) 40 GM in empty flexible container 1 EACH IV (09:13)
== END 2024-06-09 23:59 | disposition home or self-care (01) ==
PROVIDERS: PCP Nurse Practitioner Family; Visit Provider Psychiatry & Neurology Neurology
DX: G37.3 Acute transverse myelitis in demyelinating disease of central nervous system (principal); Z79.899 Other long term (current) drug therapy; Z53.9 Procedure and treatment not carried out, unspecified reason
CPT/HCPCS: 96365; 96366; J1459

== ENCOUNTER 2024-06-16 08:55 | Oncology outpatient (recurring) (ONCR) | payer BC, MEDICAID, SELFPAY ==
[2024-06-16 09:05] VITALS: BP 117/72; PULSE 69; TEMP 36.4; O2SAT 97
[2024-06-16 09:45] VITALS: BP 114/79; PULSE 63; RESP 16; TEMP 36.5; O2SAT 97
[2024-06-16] MEDS: immune globulin (Privigen ONC) 40 GM in empty flexible container 1 EACH IV (09:46)
[2024-06-16 10:02] VITALS: BP 117/72; PULSE 67; RESP 16; TEMP 36.3; O2SAT 97
[2024-06-16 11:48] VITALS: BP 139/85; PULSE 65; RESP 16; TEMP 36.5; O2SAT 98
== END 2024-07-10 23:59 | disposition home or self-care (01) ==
PROVIDERS: PCP Nurse Practitioner Family; Visit Provider Psychiatry & Neurology Neurology
DX: G37.3 Acute transverse myelitis in demyelinating disease of central nervous system (principal); Z79.620 Long term (current) use of immunosuppressive biologic
CPT/HCPCS: 96365; 96366; J1459

== ENCOUNTER 2024-07-14 08:46 | Oncology outpatient (recurring) (ONCR) | payer BC, MEDICAID, SELFPAY ==
[2024-07-14 09:37] VITALS: BP 116/75; PULSE 59; RESP 16; TEMP 36.4; O2SAT 96
[2024-07-14] MEDS: immune globulin (Privigen ONC) 40 GM in empty flexible container 1 EACH IV (09:37)
[2024-07-14 09:53] VITALS: BP 110/71; PULSE 56; RESP 16; TEMP 36.3; O2SAT 98
[2024-07-14 10:25] VITALS: BP 121/74; PULSE 69; RESP 17; TEMP 36.3; O2SAT 96
[2024-07-14 12:30] VITALS: BP 126/78; PULSE 67; RESP 16; TEMP 36.1; O2SAT 98
== END 2024-08-07 23:59 | disposition home or self-care (01) ==
PROVIDERS: PCP Nurse Practitioner Family; Visit Provider Psychiatry & Neurology Neurology
DX: G37.3 Acute transverse myelitis in demyelinating disease of central nervous system (principal); Z79.620 Long term (current) use of immunosuppressive biologic
CPT/HCPCS: 96365; 96366; J1459

== ENCOUNTER 2024-12-03 08:16 | Oncology outpatient (recurring) (ONCR) | payer BC, MEDICAID, SELFPAY ==
[2024-12-03] VITALS (7 sets, daily range): BP systolic 109–133; BP diastolic 66–83; PULSE 59–77; RESP 18; TEMP 36.3–36.8; O2SAT 93–97
[2024-12-03] MEDS: diphenhydrAMINE 50 mg/mL SDV 1mL 25 MG IVP (08:59)
[2024-12-03] MEDS: sodium chloride 0.9% 250 ML 75 ML IV (08:59)
[2024-12-03] MEDS: acetaminophen 500 mg Tablet 1000 MG PO (09:00)
[2024-12-03] MEDS: methylPREDNISolone sod succ 125 mg/2 mL INJ IVP (09:03)
[2024-12-03] MEDS: ocrelizumab 300 MG in sodium chloride 0.9% 250 ML 30 MG IV (09:28)
== END 2024-12-03 23:59 | disposition home or self-care (01) ==
PROVIDERS: PCP Nurse Practitioner Family; Visit Provider Psychiatry & Neurology Neurology
DX: G37.3 Acute transverse myelitis in demyelinating disease of central nervous system (principal); Z79.899 Other long term (current) drug therapy
CPT/HCPCS: 96375; 96413; 96415; A4222; J1200; J2350; J2919; J7050; J9999

== ENCOUNTER 2024-12-17 09:07 | Oncology outpatient (recurring) (ONCR) | payer BC, MEDICAID, SELFPAY ==
[2024-12-17] VITALS (7 sets, daily range): BP systolic 103–115; BP diastolic 66–76; PULSE 65–74; RESP 16–18; TEMP 36.1–36.3; O2SAT 94–97
[2024-12-17] MEDS: diphenhydrAMINE 50 mg/mL SDV 1mL 25 MG IVP (09:51)
[2024-12-17] MEDS: methylPREDNISolone sod succ 125 mg/2 mL INJ IVP (09:56)
== END 2024-12-17 23:59 | disposition home or self-care (01) ==
LOC: ONCMED 09:09
PROVIDERS: PCP Nurse Practitioner Family; Visit Provider Psychiatry & Neurology Neurology
DX: G37.3 Acute transverse myelitis in demyelinating disease of central nervous system (principal); Z79.899 Other long term (current) drug therapy
CPT/HCPCS: 96365; 96366; 96375; A4222; J1200; J2350; J2919; J7050; J9999

== ENCOUNTER → 2025-01-06 17:18 | Outpatient (BNVA) | payer BC, MEDICAID, SELFPAY | PROVIDERS: PCP Nurse Practitioner Family; Visit Provider Psychiatry & Neurology Neurology | DX: G37.9 Demyelinating disease of central nervous system, unspecified (principal); G37.3 Acute transverse myelitis in demyelinating disease of central nervous system; G95.19 Other vascular myelopathies; R20.2 Paresthesia of skin; M79.601 Pain in right arm; M79.602 Pain in left arm | CPT/HCPCS: 36415; 86705; 86706; 86709; 86803; 87340; 87801 ==

== ENCOUNTER 2025-01-15 08:09 | Oncology outpatient (recurring) (ONCR) | payer BC, MEDICAID, SELFPAY ==
--- NOTE | 2025-01-15 08:00 | MR_ITS ---
WS: [id number] MRI LUMBAR SPINE NONCONTRAST TECHNIQUE: Sagittal T1, T2 and STIR imaging. Axial T1 and T2 imaging. CLINICAL INFORMATION: M54.50 - Low back pain, unspecified COMPARISON: None. FINDINGS: Mild lumbar curve. No acute compression. No high-grade central canal stenosis. No visualized lesions in the lower thoracic cord. L1-L2: Normal. L2-L3: Normal. L3-L4: Mild facet arthropathy. Spinal canal and foramen are patent. L4-L5: Moderate facet arthropathy. Spinal canal and foramina are patent. L5-S1: Moderate facet arthropathy. Spinal canal and foramen are patent. Visualized pelvic bony structures: Normal. Paravertebral soft tissues: Normal. Partially visualized large adnexal cysts in the pelvis. This can be further evaluated with ultrasound. MR/MR lumbar spine wo con* [id number] IMPRESSION: 1. No acute lumbar spine findings. 2. Partially visualized large adnexal cysts in the pelvis. This can be further evaluated with ultrasound.
--- NOTE | 2025-01-15 08:45 | MR_ITS ---
WS: [id number] MR CERVICAL SPINE WO/W COMPARISON: 07/16/2023 HISTORY: M54.2 - Cervicalgia TECHNIQUE: Sagittal T1, T2 and T2 inversion recovery; axial T2, T2 gradient and fiesta. Post gadolinium imaging with fat saturation technique. FINDINGS: Again seen is focal T2 signal normality in the cervical cord centered at C3-4 extending over a length of 11 mm. No abnormal gadolinium enhancement. No new lesions. Vague equivocal lesion at the cervical medullary junction is better seen today and unchanged since 2022 C2-3: Spinal canal and foramen are patent. C3-4: Spinal canal and foramen are patent. C4-5: Spinal canal and foramen are patent. C5-6: Mild facet arthropathy. Spinal canal and foramen are patent. C6-7: Small central disc protrusion. Mild facet arthropathy. Spinal canal is patent. Mild LEFT bony foraminal narrowing. C7-T1: Spinal canal and foramen are patent. Nodular thyroid. MR/MR cervical spine wo/w [id number] IMPRESSION: 1. Stable T2 hyperintense signal abnormality in the cervical cord at C3. No ab normal gadolinium enhancement. Findings remain nonspecific but differential con siderations include demyelinating disease or myelomalacia from prior infectious , inflammatory, traumatic, or vascular insult. 2. No new lesions. 3. No other acute findings.
[2025-01-15] MEDS: gadobenate dimeglumine 20 mL vial IV (09:07)
== END 2025-02-07 23:59 | disposition home or self-care (01) ==
LOC: ONCMED 08:09
PROVIDERS: PCP Nurse Practitioner Family; Visit Provider Psychiatry & Neurology Neurology
DX: M47.812 Spondylosis without myelopathy or radiculopathy, cervical region (principal); M50.30 Other cervical disc degeneration, unspecified cervical region; M47.22 Other spondylosis with radiculopathy, cervical region; M79.605 Pain in left leg; R93.7 Abnormal findings on diagnostic imaging of other parts of musculoskeletal system; M89.9 Disorder of bone, unspecified; M47.892 Other spondylosis, cervical region; M50.223 Other cervical disc displacement at C6-C7 level; E04.1 Nontoxic single thyroid nodule; N94.89 Other specified conditions associated with female genital organs and menstrual cycle; M43.8X6 Other specified deforming dorsopathies, lumbar region; M47.896 Other spondylosis, lumbar region; M47.897 Other spondylosis, lumbosacral region
CPT/HCPCS: 72148; 72156; A9577

== ENCOUNTER → 2025-01-20 08:17 | Outpatient (BNVA) | payer BC, MEDICAID, SELFPAY | PROVIDERS: PCP Nurse Practitioner Family; Visit Provider Obstetrics & Gynecology | DX: N83.201 Unspecified ovarian cyst, right side (principal); N83.292 Other ovarian cyst, left side | CPT/HCPCS: 76830 ==

== ENCOUNTER 2025-06-01 09:03 | Oncology outpatient (recurring) (ONCR) | payer BC, MEDICAID, SELFPAY ==
[2025-06-01] MEDS: diphenhydrAMINE 50 mg/mL SDV 1mL 25 MG IVP (09:43)
[2025-06-01] MEDS: methylPREDNISolone sod succ 125 mg/2 mL INJ IVP (09:50)
[2025-06-01 10:35] VITALS: BP 113/72; PULSE 72; RESP 16; TEMP 36.2; O2SAT 95
[2025-06-01 11:05] VITALS: BP 108/63; PULSE 72; RESP 16; TEMP 36.6; O2SAT 95
[2025-06-01 11:36] VITALS: BP 98/61; PULSE 76; RESP 16; TEMP 36.6; O2SAT 95
[2025-06-01 12:07] VITALS: BP 109/69; PULSE 74; RESP 16; TEMP 36.5; O2SAT 94
[2025-06-01 12:38] VITALS: BP 122/76; PULSE 81; RESP 16; TEMP 36.6; O2SAT 96
[2025-06-01 14:25] VITALS: BP 133/73; PULSE 88; RESP 16; TEMP 36.4; O2SAT 92
== END 2025-06-01 23:59 | disposition home or self-care (01) ==
PROVIDERS: PCP Nurse Practitioner Family; Visit Provider Psychiatry & Neurology Neurology
DX: G37.9 Demyelinating disease of central nervous system, unspecified (principal); Z79.899 Other long term (current) drug therapy
CPT/HCPCS: 96375; 96413; 96415; A4222; J1200; J2350; J2919; J7040; J7050; J9999